=== PATIENT | female | born 1975 | race African-American/Black ===

== ENCOUNTER 2017-01-27 06:16 | Emergency (ER) | payer OTHER ==
--- NOTE | 2017-01-27 07:39 | ER Document Report ---
ED General - General Chief Complaint: Vaginal Discharge Stated Complaint: VAGINAL ITCHING Time Seen by Provider: 01/27/17 07:03 Mode of Arrival: Ambulatory Information source: Patient Notes: Patient presents emergency department with complaints of vaginal discharge with odor vaginal itching and stomach cramps for about 11/2 weeks. Patient reports history of ED. Reports sexually active with 2 partners and sometimes uses protection. Denies other symptoms such as fever vomiting reports occasional diarrhea. History of BTL in 2006. Denies pain with void. TRAVEL OUTSIDE OF THE [place] IN LAST 30 DAYS: No - HPI Onset: Last week Onset/Duration: Persistent Quality of pain: Cramping Severity: Moderate Pain Level: 3 Associated symptoms: None Exacerbated by: Denies Relieved by: Denies Similar symptoms previously: Yes - hx of bv - Related Data Allergies/Adverse Reactions: No Known Allergies Allergy (Verified 12/10/15 16:29) Past Medical History - General Information source: Patient Last Menstrual Period: 2 weeks ago - Social History Smoking Status: Unknown if Ever Smoked Cigarette use (# per day): No Frequency of alcohol use: None Drug Abuse: None Family History: Reviewed & Not Pertinent Patient has suicidal ideation: No Patient has homicidal ideation: No - Past Medical History Cardiac Medical History: Reports: Hx Hypertension Renal/ Medical History: Denies: Hx Peritoneal Dialysis Past Surgical History: Reports: Hx Tubal Ligation - Immunizations Hx Diphtheria, Pertussis, Tetanus Vaccination: Yes Review of Systems - Review of Systems Notes: Review HPI for review of systems., All other systems negative Physical Exam - Vital signs Vitals: Temp Pulse Resp BP Pulse Ox 97.5 F 59 L 14 134/87 H 99 01/27/17 06:31 01/27/17 06:31 01/27/17 06:31 01/27/17 06:31 01/27/17 06:31 - Notes Notes: PHYSICAL EXAMINATION: GENERAL: Well-appearing and in no acute distress HEAD: Atraumatic, normocephalic. EYES: Pupils equal round extraocular movements intact, sclera anicteric, conjunctiva are normal. ENT: nares patent, . Moist mucous membranes. NECK: Normal range of motion, supple without lymphadenopathy LUNGS: CTAB and equal. No wheezes rales or rhonchi. HEART: Regular rate and rhythm without murmurs ABDOMEN: Soft, no tenderness with palpation. No guarding, no rebound BACK: Denies pain EXTREMITIES: Normal range of motion, no pitting edema. No cyanosis. NEUROLOGICAL: Cranial nerves grossly intact. Normal sensory/motor exams. PSYCH: Normal mood, normal affect. SKIN: Warm, Dry, normal turgor, no rashes or lesions noted - Genitourinary External exam: Normal Speculum exam: Vaginal discharge - + ODOR Vaginal bleeding: None Bimanuel exam: Normal. No: Adnexal tenderness Course - Re-evaluation Re-evalutation: 01/27/17 09:40 Positive for BV and trichomonas. Patient requested treatment prophylactically for chlamydia and gonorrhea. She does not wish to wait for results. She will also be treated for Trichomonas and BV. She was instructed on the importance of follow-up and notifying her partner of the trich 01/27/17 12:12 chlamydia and gonorrhea negative, pt was instructed "no news is good news" before she left so the patient will not be contacted. - Vital Signs Vital signs: Temp Pulse Resp BP Pulse Ox 97.8 F 61 16 111/66 100 01/27/17 09:58 01/27/17 09:58 01/27/17 09:58 01/27/17 09:58 01/27/17 09:58 Procedures - Pelvic Exam Pelvic exam Time completed: 09:01 Cultures obtained: Yes Wet prep obtained: Yes Herpes culture obtained: No POC sent to lab: No Foreign body removed: No Bimanual exam performed: Yes Witnessed by: jeri bowmanstock turner - Discharge Clinical Impression: Vaginal discharge, trichomonas, Bacterial vaginitis, Elevated blood pressure reading Condition: Stable Disposition: HOME, SELF-CARE Instructions: Gonorrhea ([facility]), Chlamydia ([facility]), Trichomonas Infection ([facility]), Vaginosis, Bacterial ([facility]), Metronidazole ([facility]), Azithromycin ([facility]), Rocephin ( [facility]), [facility] Additional Instructions: *You have been evaluated for vaginal discharge, trichomonas, she will vaginosis , possible STD exposure, ELEVATED blood pressure reading *You have been treated prophylactically for gonorrhea and Chlamydia with rocephin and zithromax *Take medication as prescribed for trichomonas and BV *Follow up with your SUSTAINABILITY COMMUNICATOR or the health department for recheck in one week *Avoid sexual intercourse until follow up *Return to ED for worsening condition, changes, needs Monitor your blood pressure. Your blood pressure was elevated today. This may be because you were anxious, in pain or because you need medication. It is important to follow up with your primary care provider for full evaluation. Prescriptions: Metronidazole [Flagyl 500 mg Tablet] 500 mg PO BID #14 tablet Forms: Elevated Blood Pressure, Return to Work Referrals: SALVADOR KEEN MD [Primary Care Provider] - Follow up in 1 week
[2017-01-27 08:38] LABS: AMORPHOUS SEDIMENT,URINE TRACE /HPF; APPEARANCE,URINE CLOUDY; BILIRUBIN,URINE NEGATIVE (NEGATIVE); CALCIUM OXALATE CRYSTALS,URINE FEW /HPF; GLUCOSE, URINE NEGATIVE (NEGATIVE); KETONES,URINE NEGATIVE (NEGATIVE); LEUKOCYTE ESTERASE,URINE NEGATIVE (NEGATIVE); NITRITE,URINE NEGATIVE (NEGATIVE); PROTEIN,URINE NEGATIVE (NEGATIVE); URINE SPECIFIC GRAVITY 1.011; UROBILINOGEN,URINE NEGATIVE mg/dL (<2.0)
[2017-01-27] MEDS ORDERED: LIDOCAINE 1% INJ-PF (10 MG/ML) 30 ML SDV INJ ONE (09:35)
[2017-01-27] MEDS ORDERED: CEFTRIAXONE INJ 250 MG VIAL IM ONE (09:35)
[2017-01-27] MEDS ORDERED: AZITHROMYCIN 1 GM SUSP PACKET PO ONE (09:35)
[2017-01-27 10:00] VITALS: BP 111/66
[2017-01-27 10:41] LABS: CHLAM PCR NOT DETECTED (NOT DETECT)
== END 2017-01-27 10:13 | disposition home or self-care (01) ==
LOC: ER 06:16
DX: A59.00 Urogenital trichomoniasis, unspecified (principal); N76.0 Acute vaginitis; R03.0 Elevated blood-pressure reading, without diagnosis of hypertension; N89.8 Other specified noninflammatory disorders of vagina; R10.9 Unspecified abdominal pain
CPT/HCPCS: 99283; 96372; 87210; 81025; 81001; 87491; 87591; J3490; Q0144; J0696

== ENCOUNTER 2017-02-01 21:03 | Emergency (ER) | payer OTHER ==
[2017-02-01 23:25] LABS: ABSOLUTE EOSINOPHILS # (AUTO) 0.1 10^3/uL (0.0-0.6); ABSOLUTE LYMPHOCYTES (AUTO) 2.6 10^3/uL (0.5-4.7); ABSOLUTE MONOCYTES (AUTO) 0.6 10^3/uL (0.1-1.4); ABSOLUTE NEUT (AUTO) 2.1 10^3/uL (1.7-8.2); BASOPHILS % (AUTO) 0.3 % (0-2); EOSINOPHILS % (AUTO) 1.7 % (0-6); HEMATOCRIT 34.2 % (36.0-47.0); HGB HCT DIFFERENCE -1.2; LYMPHOCYTES % (AUTO) 47.8 % (13-45); MEAN CORPUSCULAR HGB CONC 32.1 g/dL (32.0-36.0); MEAN CORPUSCULAR VOLUME 84 fl (80-97); MONOCYTES % (AUTO) 11.3 % (3-13); RED BLOOD COUNT 4.08 10^6/uL (3.72-5.28); RED CELL DISTRIBUTION WIDTH 14.8 % (11.5-14.0); SEGMENTED NEUTROPHILS % (AUTO) 38.9 % (42-78); WHITE BLOOD COUNT 5.5 10^3/uL (4.0-10.5)
[2017-02-01 23:41] LABS: ANION GAP 9 (5-19); BLOOD UREA NITROGEN 13 mg/dL (7-20); CALCIUM 9.1 mg/dL (8.4-10.2); CARBON DIOXIDE 27 mmol/L (22-30); CHLORIDE 105 mmol/L (98-107); CREATININE RESULT 0.88 mg/dL (0.52-1.25); GLUCOSE 100 mg/dL (75-110); POTASSIUM 3.8 mmol/L (3.6-5.0); SODIUM 141.2 mmol/L (137-145)
--- NOTE | 2017-02-02 01:13 | ER Document Report ---
ED GI/ - General Chief Complaint: Abdominal Cramping Stated Complaint: ABDOMINAL PAIN Time Seen by Provider: 02/01/17 21:49 Notes: Patient is a 41-year-old female presents with department complaining of abdominal cramping and diarrhea starting on Sunday. Was evaluated on Sunday for vaginal discharge, treated for Trichomonas, BV, chlamydia and gonorrhea. Patient states since Sunday she has been having 4-5 loose bowel movements a day with associated nausea, cramping abdominal pain. She denies any fevers, chills. Denies any vomiting or bright red blood per rectum TRAVEL OUTSIDE OF THE [place] IN LAST 30 DAYS: No - Related Data Allergies/Adverse Reactions: No Known Allergies Allergy (Verified 12/10/15 16:29) Past Medical History - Social History Smoking Status: Never Smoker Chew tobacco use (# tins/day): No Frequency of alcohol use: Social Drug Abuse: None Family History: Reviewed & Not Pertinent Patient has suicidal ideation: No Patient has homicidal ideation: No - Past Medical History Cardiac Medical History: Reports: Hx Hypertension Renal/ Medical History: Denies: Hx Peritoneal Dialysis Past Surgical History: Reports: Hx Tubal Ligation - Immunizations Hx Diphtheria, Pertussis, Tetanus Vaccination: Yes Review of Systems - Review of Systems Constitutional: No symptoms reported Cardiovascular: No symptoms reported Respiratory: No symptoms reported Gastrointestinal: See HPI -: Yes All other systems reviewed and negative Physical Exam - Vital signs Vitals: Temp Pulse Resp BP Pulse Ox 97.8 F 73 16 129/94 H 97 02/01/17 21:26 02/01/17 21:26 02/01/17 21:26 02/01/17 21:26 02/01/17 21:26 - Notes Notes: PHYSICAL EXAM GENERAL: Alert, interacts well. LUNGS: Clear to auscultation bilaterally, no wheezes, rales, or rhonchi. No respiratory distress. HEART: Regular rate and rhythm. No murmurs, gallops, or rubs. ABDOMEN: Soft, nondistended, nontender. No guarding, rebound, or rigidity.. Bowel sounds present in all 4 quadrants. EXTREMITIES: Moves all 4 extremities spontaneously. No edema, radial and dorsalis pedis pulses 2/4 bilaterally. No cyanosis. NEUROLOGICAL: Alert and oriented x4. Normal speech. PSYCH: Normal affect, normal mood. SKIN: Warm, dry, normal turgor. No rashes or lesions noted. Course - Re-evaluation Re-evalutation: 02/02/17 07:43 CBC without any evidence of leukocytosis or anemia. CMP normal. C. difficile toxin negative. Patient given instructions for [id number] supplements and diet for her diarrhea and instruction to follow-up with primary care - Vital Signs Vital signs: Temp Pulse Resp BP Pulse Ox 97.8 F 65 18 119/72 99 02/01/17 21:26 02/02/17 01:19 02/02/17 01:19 02/02/17 01:19 02/02/17 01:19 - Laboratory Result Diagrams: 02/01/17 22:49 02/01/17 22:49 Laboratory results interpreted by me: 02/01/17 22:49 Hgb 11.0 L Hct 34.2 L RDW 14.8 H Seg Neutrophils % 38.9 L Lymphocytes % 47.8 H Discharge - Discharge Clinical Impression: Diarrhea Condition: Good Disposition: HOME, SELF-CARE Instructions: Diarrhea, Nonspecific ([facility]) Additional Instructions: Patients should be encouraged to eat as tolerated. Smaller meals may be less likely to induce vomiting than larger ones. [place], low residue foods may also be better tolerated than others. For healthy adults with acute viral gastroenteritis without signs of dehydration , sport drinks, diluted fruit juices, and other flavored soft drinks augmented with saltine crackers and broths or soups can meet the fluid and salt needs in almost all cases. Broiled starches/cereals (potatoes, noodles, rice, wheat, and oat) with some salt are excellent foods to consider. In addition, crackers, bananas, yogurt, soups, and boiled vegetables can also be consumed. While the BRAT diet (bananas, rice, applesauce, and toast)
[2017-02-02 01:20] VITALS: BP 119/72
== END 2017-02-02 01:19 | disposition home or self-care (01) ==
LOC: ER 21:03
DX: R10.9 Unspecified abdominal pain (principal); R19.7 Diarrhea, unspecified; R11.0 Nausea; I10 Essential (primary) hypertension; Z98.51 Tubal ligation status
CPT/HCPCS: 36415; 80048; 85025; 87493; 99284

== ENCOUNTER 2017-03-02 08:31 | Emergency (ER) | payer OTHER ==
[2017-03-02] MEDS ORDERED: AZITHROMYCIN 250 MG TABLET PO ONE (11:25)
[2017-03-02] MEDS ORDERED: LIDOCAINE 1% INJ-PF (10 MG/ML) 30 ML SDV INJ ONE (11:25)
[2017-03-02] MEDS ORDERED: CEFTRIAXONE INJ 250 MG VIAL IM ONE (11:25)
--- NOTE | 2017-03-02 11:28 | ER Document Report ---
ED GI/ - General Chief Complaint: Abdominal Pain Stated Complaint: ABDOMINAL PAIN Time Seen by Provider: 03/02/17 08:48 Mode of Arrival: Ambulatory Information source: Patient Notes: Patient is a 41-year-old female who presents to the ER today for lower abdominal cramping. Vaginal discharge with itching that began approximately 2 weeks ago. Patient is concerned for STDs such as gonorrhea and chlamydia. She denies any dysuria, fevers, chills that she knows of. She denies vaginal bleeding. TRAVEL OUTSIDE OF THE [place] IN LAST 30 DAYS: No - Related Data Allergies/Adverse Reactions: No Known Allergies Allergy (Verified 03/02/17 08:35) Past Medical History - General Information source: Patient - Social History Smoking Status: Never Smoker Chew tobacco use (# tins/day): No Frequency of alcohol use: None Drug Abuse: None Family History: Reviewed & Not Pertinent Patient has suicidal ideation: No Patient has homicidal ideation: No - Past Medical History Cardiac Medical History: Reports: Hx Hypertension Renal/ Medical History: Denies: Hx Peritoneal Dialysis Past Surgical History: Reports: Hx Tubal Ligation - Immunizations Hx Diphtheria, Pertussis, Tetanus Vaccination: Yes Review of Systems - Review of Systems Constitutional: No symptoms reported EENT: No symptoms reported Cardiovascular: No symptoms reported Respiratory: No symptoms reported Gastrointestinal: No symptoms reported Genitourinary: No symptoms reported Female Genitourinary: See HPI Musculoskeletal: No symptoms reported Skin: No symptoms reported Hematologic/Lymphatic: No symptoms reported Neurological/Psychological: No symptoms reported Physical Exam - Vital signs Vitals: Temp Pulse Resp BP Pulse Ox 97.7 F 64 16 141/91 H 99 03/02/17 08:36 03/02/17 08:36 03/02/17 08:36 03/02/17 08:36 03/02/17 08:36 - Notes Notes: PHYSICAL EXAMINATION: GENERAL: Well-appearing and in no acute distress. HEAD: Atraumatic, normocephalic. EYES: Pupils equal round and reactive to light, extraocular movements intact, sclera anicteric, conjunctiva are normal. ENT: ear canals without erythema or foreign body, TMs pearly ricks with good bony landmarks, nares patent, oropharynx clear without exudates. Moist mucous membranes. NECK: Normal range of motion, supple without lymphadenopathy LUNGS: CTAB and equal. No wheezes rales or rhonchi. HEART: Regular rate and rhythm without murmurs ABDOMEN: Soft, no tenderness. No guarding, no rebound BACK: no vertebral tenderness, normal ROM GI/: no CVA tenderness Pelvic: White, curdy discharge in vaginal canal, no cervical motion tenderness, no adnexal tenderness EXTREMITIES: Normal range of motion, no pitting edema. No cyanosis. NEUROLOGICAL: Cranial nerves grossly intact. Normal sensory/motor exams. PSYCH: Normal mood, normal affect. SKIN: Warm, Dry, normal turgor, no rashes or lesions noted Course - Re-evaluation Re-evalutation: 03/02/17 11:27 Wet mount is normal, patient will be prophylactically treated for gonorrhea and chlamydia with Rocephin and azithromycin although she does not want to wait on the results. - Vital Signs Vital signs: Temp Pulse Resp BP Pulse Ox 97.7 F 64 16 141/91 H 99 03/02/17 08:36 03/02/17 08:36 03/02/17 08:36 03/02/17 08:36 03/02/17 08:36 Discharge - Discharge Clinical Impression: Vaginal discharge Condition: Stable Disposition: HOME, SELF-CARE Additional Instructions: Return immediately for any new or worsening symptoms. Follow up with primary care provider, call tomorrow to make followup appointment.
[2017-03-02 11:55] VITALS: BP 139/92
[2017-03-02 11:57] LABS: APPEARANCE,URINE CLEAR; BILIRUBIN,URINE NEGATIVE (NEGATIVE); GLUCOSE, URINE NEGATIVE (NEGATIVE); KETONES,URINE NEGATIVE (NEGATIVE); LEUKOCYTE ESTERASE,URINE NEGATIVE (NEGATIVE); NITRITE,URINE NEGATIVE (NEGATIVE); PROTEIN,URINE NEGATIVE (NEGATIVE); URINE SPECIFIC GRAVITY 1.012; UROBILINOGEN,URINE NEGATIVE mg/dL (<2.0)
[2017-03-02 12:43] LABS: CHLAM PCR NOT DETECTED (NOT DETECT)
== END 2017-03-02 11:58 | disposition home or self-care (01) ==
LOC: ER 08:31
DX: R10.30 Lower abdominal pain, unspecified (principal); N89.8 Other specified noninflammatory disorders of vagina; I10 Essential (primary) hypertension; Z98.51 Tubal ligation status
CPT/HCPCS: 99284; 96372; 87210; 81025; 81001; 87491; 87591; J3490; J0696

== ENCOUNTER 2017-05-30 17:22 | Emergency (ER) | payer OTHER ==
[2017-05-30 18:06] LABS: AMORPHOUS SEDIMENT,URINE TRACE /HPF; APPEARANCE,URINE TURBID; BILIRUBIN,URINE NEGATIVE (NEGATIVE); CALCIUM OXALATE CRYSTALS,URINE TOO NUMEROUS TO CNT /HPF; GLUCOSE, URINE NEGATIVE (NEGATIVE); KETONES,URINE NEGATIVE (NEGATIVE); LEUKOCYTE ESTERASE,URINE NEGATIVE (NEGATIVE); NITRITE,URINE NEGATIVE (NEGATIVE); PROTEIN,URINE NEGATIVE (NEGATIVE); URINE SPECIFIC GRAVITY 1.032
--- NOTE | 2017-05-30 18:20 | ER Document Report ---
ED Medical Screen (RME) - General Chief Complaint: Abdominal Pain Stated Complaint: STOMACH PAIN Time Seen by Provider: 05/30/17 17:38 Mode of Arrival: Ambulatory Information source: Patient TRAVEL OUTSIDE OF THE [place] IN LAST 30 DAYS: No - HPI Patient complains to provider of: Right lower quadrant pain 1 Notes: 05/30/17 18:20 Patient is a 41-year-old female presenting to the emergency room today complaining of pain to the right lower abdomen 1 week, she denies any nausea, vomiting or diarrhea, no fever or chills, no urinary symptoms, she does have milky white vaginal discharge - Related Data Allergies/Adverse Reactions: No Known Allergies Allergy (Verified 05/30/17 17:33) Past Medical History - Social History Chew tobacco use (# tins/day): No Frequency of alcohol use: None Drug Abuse: None - Past Medical History Cardiac Medical History: Reports: Hx Hypertension Renal/ Medical History: Denies: Hx Peritoneal Dialysis Past Surgical History: Reports: Hx Tubal Ligation - Immunizations Hx Diphtheria, Pertussis, Tetanus Vaccination: Yes Physical Exam - Vital signs Vitals: Temp Pulse Resp BP Pulse Ox 97.5 F 82 18 144/89 H 98 05/30/17 17:32 05/30/17 17:32 05/30/17 17:32 05/30/17 17:32 05/30/17 17:32 Course - Vital Signs Vital signs: Temp Pulse Resp BP Pulse Ox 97.5 F 82 18 144/89 H 98 05/30/17 17:32 05/30/17 17:32 05/30/17 17:32 05/30/17 17:32 05/30/17 17:32 - Laboratory Laboratory results interpreted by me: 05/30/17 17:33 Urine Urobilinogen 2.0 H
[2017-05-30 18:57] LABS: ABSOLUTE EOSINOPHILS # (AUTO) 0.1 10^3/uL (0.0-0.6); ABSOLUTE LYMPHOCYTES (AUTO) 2.7 10^3/uL (0.5-4.7); ABSOLUTE MONOCYTES (AUTO) 0.5 10^3/uL (0.1-1.4); ABSOLUTE NEUT (AUTO) 1.7 10^3/uL (1.7-8.2); BASOPHILS % (AUTO) 0.5 % (0-2); HEMATOCRIT 35.2 % (36.0-47.0); HEMOGLOBIN 11.5 g/dL (12.0-15.5); HGB HCT DIFFERENCE -0.7; LYMPHOCYTES % (AUTO) 53.4 % (13-45); MEAN CORPUSCULAR HEMOGLOBIN 26.7 pg (27.0-33.4); MEAN CORPUSCULAR HGB CONC 32.7 g/dL (32.0-36.0); MEAN CORPUSCULAR VOLUME 82 fl (80-97); MONOCYTES % (AUTO) 9.8 % (3-13); RED CELL DISTRIBUTION WIDTH 14.1 % (11.5-14.0); SEGMENTED NEUTROPHILS % (AUTO) 34.3 % (42-78)
[2017-05-30 19:18] LABS: ALANINE AMINOTRANSFERASE 33 U/L (9-52); ALBUMIN 4.1 g/dL (3.5-5.0); ALKALINE PHOSPHATASE 71 U/L (38-126); ANION GAP 11 (5-19); ASPARTATE AMINO TRANSFERASE 22 U/L (14-36); BILIRUBIN,DIRECT 0.3 mg/dL (0.0-0.4); BILIRUBIN,TOTAL 0.4 mg/dL (0.2-1.3); BLOOD UREA NITROGEN 12 mg/dL (7-20); CALCIUM 9.8 mg/dL (8.4-10.2); CARBON DIOXIDE 25 mmol/L (22-30); CHLORIDE 106 mmol/L (98-107); CREATININE RESULT 0.76 mg/dL (0.52-1.25); GLUCOSE 105 mg/dL (75-110); LIPASE 102.4 U/L (23-300); POTASSIUM 3.7 mmol/L (3.6-5.0); SODIUM 142.1 mmol/L (137-145); TOTAL PROTEIN 7.4 g/dL (6.3-8.2)
--- NOTE | 2017-05-30 20:16 | ER Document Report ---
ED GI/ - General Chief Complaint: Abdominal Pain Stated Complaint: STOMACH PAIN Time Seen by Provider: 05/30/17 17:38 Mode of Arrival: Ambulatory Notes: Patient is a 41-year-old female that comes emergency department for chief complaint of a crampy right sided lower abdominal/pelvic pain for 1 week. She does report a whitish vaginal discharge. She denies dysuria, flank pain, vomiting, fever. She reports a normal bowel movement yesterday. Past medical history of tubal ligation, she denies any other medical history including surgeries or daily medications. TRAVEL OUTSIDE OF THE [place] IN LAST 30 DAYS: No - Related Data Allergies/Adverse Reactions: No Known Allergies Allergy (Verified 05/30/17 17:33) Past Medical History - General Information source: Patient - Social History Smoking Status: Never Smoker Chew tobacco use (# tins/day): No Frequency of alcohol use: None Drug Abuse: None Lives with: Family Family History: Reviewed & Not Pertinent - Past Medical History Cardiac Medical History: Reports: Hx Hypertension Renal/ Medical History: Denies: Hx Peritoneal Dialysis Past Surgical History: Reports: Hx Tubal Ligation - Immunizations Hx Diphtheria, Pertussis, Tetanus Vaccination: Yes Physical Exam - Vital signs Vitals: Temp Pulse Resp BP Pulse Ox 97.5 F 82 18 144/89 H 98 05/30/17 17:32 05/30/17 17:32 05/30/17 17:32 05/30/17 17:32 05/30/17 17:32 Course - Re-evaluation Re-evalutation: Patient well-appearing, smiling, soft abdomen, no CVA tenderness, no fever. CBC shows mild normocytic anemia, no leukocytosis or concerning shift. Chemistry unremarkable, hcg negative. Urinalysis somewhat strange with some white blood cells and some bacteria but no nitrites, no leukocyte esterase. He does have calcium oxalate crystals but patient's symptoms, examination, presentation does not suggest kidney stones. There is also some dehydration and contamination. However there are also white blood cell clumps. Wet mount unremarkable, gonorrhea and chlamydia are negative. Patient treated with antibiotics for urinary tract infection because of reported symptoms although her abdominal exam is very unremarkable. No exam evidence of acute abdomen, acute appendicitis, PID. Discussed follow-up and return precautions with patient, patient states understanding and agreement. - Vital Signs Vital signs: Temp Pulse Resp BP Pulse Ox 97.7 F 76 16 138/86 H 99 05/30/17 21:44 05/30/17 21:44 05/30/17 21:44 05/30/17 21:44 05/30/17 21:44 - Laboratory Result Diagrams: 05/30/17 18:42 05/30/17 18:42 Laboratory results interpreted by me: 05/30/17 05/30/17 17:33 18:42 Hgb 11.5 L Hct 35.2 L MCH 26.7 L RDW 14.1 H Seg Neutrophils % 34.3 L Lymphocytes % 53.4 H Urine Urobilinogen 2.0 H Discharge - Discharge Clinical Impression: Lower abdominal pain Condition: Stable Disposition: HOME, SELF-CARE Additional Instructions: Your symptoms, exam, and workup suggest a urinary tract source of your symptoms. Take the Keflex antibiotic as prescribed. Drink plenty of fluids, you are dehydrated, dehydration will increase abdominal cramping symptoms. Follow-up with primary care. Return to the emergency department if you worsen including fever, vomiting, severe pain, or any other concerning symptoms. Prescriptions: Cephalexin Monohydrate [Keflex 500 mg Capsule] 500 mg PO BID #10 capsule Forms: Return to Work
[2017-05-30] MEDS ORDERED: CEPHALEXIN 500 MG CAPSULE PO ONE (21:31)
[2017-05-30 21:44] VITALS: BP 138/86
[2017-05-30 22:32] LABS: CHLAM PCR NOT DETECTED (NOT DETECT)
== END 2017-05-30 21:44 | disposition home or self-care (01) ==
LOC: ER 17:22
DX: R10.31 Right lower quadrant pain (principal); N89.8 Other specified noninflammatory disorders of vagina; Z98.51 Tubal ligation status; D64.9 Anemia, unspecified; E86.0 Dehydration; I10 Essential (primary) hypertension
CPT/HCPCS: 36415; 80053; 81001; 83690; 84703; 85025; 87210; 87491; 87591; 99284

== ENCOUNTER 2017-08-28 22:39 | Emergency (ER) | payer OTHER ==
[2017-08-29] MEDS ORDERED: LIDOCAINE 5% (700 MG) TRANSDERMAL ADH..PATCH TP ONE (01:01)
--- NOTE | 2017-08-29 01:02 | ER Document Report ---
ED General - General Chief Complaint: Flu Symptoms Stated Complaint: COUGH,SNEEZING Time Seen by Provider: 08/29/17 00:13 Notes: Patient is a 41-year-old female without past medical history who presents with approximately 1 week of cough, sneezing, nasal congestion, and chest discomfort with coughing and sneezing. She describes the chest discomfort as a sharp, stabbing pain to the right side of her chest that is present whenever she coughs or sneezes and then resolves after approximately 10 minutes. Nothing seems to improve or worsen her symptoms. Also sick contacts. She states she has had similar symptoms in the past with upper respiratory infections. She has not seen her primary doctor regarding today's concerns. She denies any syncope, shortness of breath, fever, or altered mental status. TRAVEL OUTSIDE OF THE [place] IN LAST 30 DAYS: No - Related Data Allergies/Adverse Reactions: No Known Allergies Allergy (Verified 05/30/17 17:33) Past Medical History - General Information source: Patient - Social History Smoking Status: Never Smoker Chew tobacco use (# tins/day): No Frequency of alcohol use: None Drug Abuse: None Family History: Reviewed & Not Pertinent Patient has suicidal ideation: No Patient has homicidal ideation: No - Past Medical History Cardiac Medical History: Reports: Hx Hypertension Renal/ Medical History: Denies: Hx Peritoneal Dialysis Past Surgical History: Reports: Hx Tubal Ligation - Immunizations Hx Diphtheria, Pertussis, Tetanus Vaccination: Yes Review of Systems - Review of Systems Notes: Constitutional: Negative for fever. HENT: Negative for sore throat. Positive for sinus congestion Eyes: Negative for visual changes. Cardiovascular: Negative for chest pain. Respiratory: Negative for shortness of breath. Gastrointestinal: Negative for abdominal pain, vomiting or diarrhea. Genitourinary: Negative for dysuria. Musculoskeletal: Positive for chest wall discomfort. Skin: Negative for rash. Neurological: Negative for headaches, weakness or numbness. 10 point ROS negative except as marked above and in HPI. Physical Exam - Vital signs Vitals: Temp Pulse Resp BP Pulse Ox 97.9 F 76 20 135/97 H 100 08/28/17 22:39 08/28/17 22:39 08/28/17 22:39 08/28/17 22:39 08/28/17 22:39 Interpretation: Normal Notes: PHYSICAL EXAMINATION: GENERAL: Well-appearing, well-nourished and in no acute distress. HEAD: Atraumatic, normocephalic. EYES: Pupils equal round and reactive to light, extraocular movements intact, sclera anicteric, conjunctiva are normal. ENT: nares patent, oropharynx clear without exudates. Moist mucous membranes. NECK: Normal range of motion, supple without lymphadenopathy LUNGS: Breath sounds clear to auscultation bilaterally and equal. No wheezes rales or rhonchi. HEART: Regular rate and rhythm without murmurs ABDOMEN: Soft, nontender, normoactive bowel sounds. No guarding, no rebound. No masses appreciated. EXTREMITIES: Normal range of motion, no pitting or edema. No cyanosis. NEUROLOGICAL: No focal neurological deficits. Moves all extremities spontaneously and on command. PSYCH: Normal mood, normal affect. SKIN: Warm, Dry, normal turgor, no rashes or lesions noted. Course - Re-evaluation Re-evalutation: 08/29/17 01:00 Presentation is most consistent with a viral upper respiratory infection. Patient is overall well appearance, vitals within normal limits, well-hydrated. Patient denies any headache, neck pain, and has no evidence of meningismus on examination. Patient complains of mild chest discomfort with coughing and sneezing which is reproducible on palpation. Chest x-ray and EKG are unremarkable. Lungs are clear bilaterally. No evidence of respiratory distress. Based on clinical exam and history, I do not suspect an acute pneumonia, meningitis, strep pharyngitis, or an acute encephalitis. I do not see an indication for laboratory testing given patient's well appearance and clinical history. At this time will discharge with return precautions and follow-up recommendations. Verbal discharge instructions given a the bedside and opportunity for questions given. Medication warnings reviewed. Patient is in agreement with this plan and has verbalized understanding of return precautions and the need for primary care follow-up in the next 24-72 hours. - Vital Signs Vital signs: Temp Pulse Resp BP Pulse Ox 97.7 F 61 18 130/83 H 98 08/29/17 02:11 08/29/17 02:11 08/29/17 02:11 08/29/17 02:11 08/29/17 02:11 - Diagnostic Test Radiology reviewed: Image reviewed, Reports reviewed Radiology results interpreted by me: 08/29/17 03:24 Chest x-ray: No acute infiltrate or pneumothorax - EKG Interpretation by Me Additional EKG results interpreted by me: 08/29/17 01:01 Normal sinus rhythm. Rate 60. No ST elevations or depressions. QTC is 429. Discharge - Discharge Clinical Impression: Viral upper respiratory infection, Costochondritis, acute Condition: Good Disposition: HOME, SELF-CARE Additional Instructions: Your symptoms are most likely due to a viral infection it should resolve over the next 7-14 days. You should take [id number] guanfacine per bottle instructions to help thin the mucus. For nasal congestion: I would recommend that you get [id number] oxymetazoline also known is afrin. Use only per bottle instructions and be sure to never use this for more than 3 days if you can develop severe rebound congestion. You may also use tylenol or ibuprofen as needed for aches and thorat discomfort. Please be sure to drink plenty of fluids and get rest. Return to the emergency department he began having difficulty breathing, chest pain, persistent vomiting, or any other symptoms that are concerning to you.
--- NOTE | 2017-08-29 01:58 | RADIOLOGY REPORT (SQ) ---
EXAM DESCRIPTION: CHEST SINGLE VIEW CLINICAL HISTORY: 41 years, Female, cough, chest discomfort COMPARISON: None. FINDINGS: Moderate lung volume, clear parenchyma, normal cardiac silhouette, and intact bony thorax. IMPRESSION: No acute cardiopulmonary findings. 2011 [employer] - [employer]- All Rights Reserved
[2017-08-29 02:11] VITALS: BP 130/83
--- NOTE | 2017-08-29 10:34 | EKG REPORT ---
SEVERITY:- NORMAL ECG - SINUS RHYTHM : Confirmed by: Silvana Lance 29-Aug-2017 10:33:17
== END 2017-08-29 02:11 | disposition home or self-care (01) ==
LOC: ER 22:39
DX: J06.9 Acute upper respiratory infection, unspecified (principal); M94.0 Chondrocostal junction syndrome [Tietze]; I10 Essential (primary) hypertension; Z98.51 Tubal ligation status
CPT/HCPCS: 71045; 93005; 93010; 99283

== ENCOUNTER 2018-01-18 21:09 | Emergency (ER) | payer SELFPAY ==
[2018-01-18] MEDS ORDERED: LORATADINE 10 MG TABLET PO ONE (23:48)
--- NOTE | 2018-01-18 23:53 | ER Document Report ---
ED Skin Rash/Insect Bite/Abscs - General Chief Complaint: Rash Stated Complaint: RASH Time Seen by Provider: 01/18/18 22:43 Mode of Arrival: Ambulatory Information source: Patient TRAVEL OUTSIDE OF THE [place] IN LAST 30 DAYS: No - HPI Patient complains to provider of: Skin rash/lesion Notes: Patient is here with complaints of itchy rash to the bilateral hands and forearms for the last week. 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 She does wear latex gloves every day at work. The rash is itchy. There is no significant pain. She denies any numbness, tingling , weakness. No fever. No nausea, vomiting, diarrhea. She denies any new soaps , detergents, lotions, medications. No specific new exposures while at work. She denies any difficulty breathing or swallowing. She tried some hydrocortisone cream which she states worked somewhat but it still seems to be very itchy and not going away. She denies any other complaints at this time. - Related Data Allergies/Adverse Reactions: No Known Allergies Allergy (Verified 05/30/17 17:33) Past Medical History - Social History Smoking Status: Never Smoker Frequency of alcohol use: Occasional Drug Abuse: None Family History: Reviewed & Not Pertinent Patient has suicidal ideation: No Patient has homicidal ideation: No - Past Medical History Cardiac Medical History: Reports: Hx Hypertension Renal/ Medical History: Denies: Hx Peritoneal Dialysis Past Surgical History: Reports: Hx Tubal Ligation - Immunizations Hx Diphtheria, Pertussis, Tetanus Vaccination: Yes Review of Systems - Review of Systems -: Yes All other systems reviewed and negative Physical Exam - Vital signs Vitals: Temp Pulse Resp BP Pulse Ox 98.6 F 60 16 128/85 H 100 01/18/18 21:41 01/18/18 21:41 01/18/18 21:41 01/18/18 21:41 01/18/18 21:41 - Notes Notes: GENERAL: alert, cooperative, nontoxic, no distress. HEAD: normocephalic, atraumatic EYES: conjunctiva pink without discharge, no external redness or swelling. EARS: no external swelling, no external redness NOSE: atraumatic, no external swelling MOUTH/THROAT: mucous membranes moist and pink NECK: soft, supple, full range of motion, no meningismus. CHEST: no distress, lungs clear and equal throughout. No wheezing, rales, rhonchi. CARDIAC: regular rate and rhythm, no murmur, normal capillary refill, normal pulses. BACK: full range of motion, no CVA tenderness. EXTREMITIES: full range of motion of all extremities. No redness, no swelling. NEURO: alert and oriented 3, no focal deficits, full range of motion of all extremities. PYSCH: appropriate mood, affect. Patient is cooperative. SKIN: pink, warm, dry, nonspecific papular rash to the dorsum of the bilateral hands and the distal third of the forearms. No redness. No petechiae. No vesicles. Full range of motion. Course - Re-evaluation Re-evalutation: 01/18/18 23:50 Patient is nontoxic appearing with stable vitals. Here with complaints of rash to the hands and distal forearms for the last week or so. 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 She occasionally does dishes as well. Rash certainly has a consistent appearance with contact dermatitis versus irritant dermatitis. At this point I instructed the patient to stop wearing latex gloves. I did give her a small supply of some latex free gloves that she can try at work. I did inform her to have her work order her latex free gloves to try this. She will be given a prescription for Kenalog cream. She is instructed to take Benadryl as needed for the itching. Follow-up if this does not improve in the next week, sooner for worsening symptoms, high fever, pain, numbness, tingling, weakness, any further concerns. The patient is noted to have elevated blood pressure during today's emergency department visit. The patient was informed of this finding. The patient was instructed that this may be related to pre-hypertension and requires further evaluation with a primary care provider. The patient has no hypertensive symptoms at this time. The patient's emergency department workup and current diagnosis were explained to the patient and or family. Follow-up instructions were provided. Medications if prescribed were discussed. Instructions for when to return to the emergency department including specific worrisome symptoms were discussed with the patient and/or family. - Vital Signs Vital signs: Temp Pulse Resp BP Pulse Ox 98.6 F 60 16 128/85 H 100 01/18/18 21:41 01/18/18 21:41 01/18/18 21:41 01/18/18 21:41 01/18/18 21:41 Discharge - Discharge Clinical Impression: Contact dermatitis Qualifiers: Contact dermatitis type: allergic Contact dermatitis trigger: unspecified trigger Qualified Code(s): L23.9 - Allergic contact dermatitis, unspecified cause Condition: Stable Disposition: HOME, SELF-CARE Instructions: Contact Dermatitis ([facility]) Additional Instructions: Take medications as prescribed. Wear latex free gloves while at work. Take [id number] Claritin or Benadryl to help with itching. Follow-up if not better in 1 week, sooner for worsening symptoms, high fever, redness, pain, numbness, tingling, weakness, any further concerns. Your blood pressure was elevated during today's visit. Have this rechecked with your doctor. Prescriptions: Triamcinolone Acetonide 1 applic TP BID #90 g Forms: Elevated Blood Pressure, Smoking Cessation Education Referrals: [facility] [Provider Group] - Follow up as needed
[2018-01-19 00:19] VITALS: BP 141/94
== END 2018-01-19 00:20 | disposition home or self-care (01) ==
LOC: ER 21:09
DX: L23.9 Allergic contact dermatitis, unspecified cause (principal); L29.9 Pruritus, unspecified; I10 Essential (primary) hypertension; Z98.51 Tubal ligation status
CPT/HCPCS: 99282

== ENCOUNTER 2018-04-02 08:23 | Emergency (ER) | payer OTHER ==
--- NOTE | 2018-04-02 08:43 | ER Document Report ---
ED Medical Screen (RME) - General Chief Complaint: High Blood Pressure Stated Complaint: BLOOD PRESSURE ISSUE Time Seen by Provider: 04/02/18 08:38 Mode of Arrival: Wheelchair Information source: Patient Notes: Patient presents emergency department with reports that her blood pressure was high at work. She reports she felt really hot, dizzy and nauseated. Patient reports her blood pressure goes up and down but she is not currently taking any kind of blood pressure medication. Denies cardiac history. Denies chest pain, denies shortness of breath. Reports headaches now and then but denies headache at this point. marked pain 4/5 but reports that was her dizziness, not pain. I have greeted and performed a rapid initial assessment of this patient. A comprehensive ED assessment and evaluation of the patient, analysis of test results and completion of the medical decision making process will be conducted by additional ED providers. TRAVEL OUTSIDE OF THE [place] IN LAST 30 DAYS: No - Related Data Allergies/Adverse Reactions: No Known Allergies Allergy (Verified 05/30/17 17:33) Past Medical History - Past Medical History Cardiac Medical History: Reports: Hx Hypertension Renal/ Medical History: Denies: Hx Peritoneal Dialysis Past Surgical History: Reports: Hx Tubal Ligation - Immunizations Hx Diphtheria, Pertussis, Tetanus Vaccination: Yes Physical Exam - Vital signs Vitals: Temp Pulse Resp BP Pulse Ox 98.0 F 75 20 146/86 H 100 04/02/18 08:24 04/02/18 08:24 04/02/18 08:24 04/02/18 08:24 04/02/18 08:24 Course - Vital Signs Vital signs: Temp Pulse Resp BP Pulse Ox 98.0 F 75 20 146/86 H 100 04/02/18 08:24 04/02/18 08:24 04/02/18 08:24 04/02/18 08:24 04/02/18 08:24
[2018-04-02 09:38] LABS: ABSOLUTE EOSINOPHILS # (AUTO) 0.1 10^3/uL (0.0-0.6); ABSOLUTE LYMPHOCYTES (AUTO) 1.9 10^3/uL (0.5-4.7); ABSOLUTE MONOCYTES (AUTO) 0.3 10^3/uL (0.1-1.4); ABSOLUTE NEUT (AUTO) 1.3 10^3/uL (1.7-8.2); BASOPHILS % (AUTO) 0.8 % (0-2); HEMATOCRIT 37.2 % (36.0-47.0); LYMPHOCYTES % (AUTO) 53.2 % (13-45); MEAN CORPUSCULAR HEMOGLOBIN 26.2 pg (27.0-33.4); MEAN CORPUSCULAR HGB CONC 32.2 g/dL (32.0-36.0); MEAN CORPUSCULAR VOLUME 81 fl (80-97); MONOCYTES % (AUTO) 8.5 % (3-13); PLATELET COUNT 286 10^3/uL (150-450); RED BLOOD COUNT 4.57 10^6/uL (3.72-5.28); RED CELL DISTRIBUTION WIDTH 15.1 % (11.5-14.0); SEGMENTED NEUTROPHILS % (AUTO) 35.5 % (42-78); TOTAL CELLS COUNTED % (AUTO) 100 %; WHITE BLOOD COUNT 3.6 10^3/uL (4.0-10.5)
[2018-04-02 09:56] LABS: ALANINE AMINOTRANSFERASE 22 U/L (9-52); ALBUMIN 4.3 g/dL (3.5-5.0); ALKALINE PHOSPHATASE 82 U/L (38-126); ANION GAP 12 (5-19); ASPARTATE AMINO TRANSFERASE 26 U/L (14-36); BILIRUBIN,DIRECT 0.2 mg/dL (0.0-0.4); BILIRUBIN,TOTAL 0.5 mg/dL (0.2-1.3); BLOOD UREA NITROGEN 14 mg/dL (7-20); CALCIUM 9.6 mg/dL (8.4-10.2); CARBON DIOXIDE 28 mmol/L (22-30); CHLORIDE 103 mmol/L (98-107); GLUCOSE 97 mg/dL (75-110); POTASSIUM 4.1 mmol/L (3.6-5.0); SODIUM 143.3 mmol/L (137-145); TOTAL PROTEIN 8.1 g/dL (6.3-8.2)
--- NOTE | 2018-04-02 10:29 | ER Document Report ---
ED Blood Pressure Problem - General Chief Complaint: High Blood Pressure Stated Complaint: BLOOD PRESSURE ISSUE Time Seen by Provider: 04/02/18 08:38 Mode of Arrival: Ambulatory Information source: Patient Notes: Chief complaint: Elevated blood pressure History of complain:( obtained from----patient) 42 years old female has been running an elevated blood pressure for the last several weeks, at work they checked her blood pressure and it was elevated therefore they sent over to the ER. Prior to that she was complaining of left-sided headache which has subsided by the time she came to the ED. Denies any neck pain neck stiffness. Denies any nausea vomiting. Denies any other constitutional symptoms. Denies any chest pain or palpitation. Onset: As above gradual Duration: Last few weeks Severity: Mild to moderate Quality: None Context: Heat exposure Exacerbating factor and relieving factors: At workplace REVIEW OF SYSTEMS: CONSTITUTIONAL : Denies fever, chills, or sweats. Denies recent illness. EENT: Denies eye, ear, throat, or mouth pain or symptoms. Denies nasal or sinus congestion or discharge. Denies throat, tongue, or mouth swelling or difficulty swallowing. CARDIOVASCULAR: Denies chest pain. Denies palpitations or racing or irregular heart beat. Denies ankle edema. RESPIRATORY: Denies cough, cold, or chest congestion. Denies shortness of breath, difficulty breathing, or wheezing. GASTROINTESTINAL: Denies distention. Denies nausea, vomiting, or diarrhea. Denies blood in vomitus, stools, or per rectum. Denies black, tarry stools. Denies constipation. GENITOURINARY: Denies difficulty urinating, painful urination, burning, frequency, blood in urine, or discharge. FEMALE GENITOURINARY: Denies vaginal bleeding, heavy or abnormal periods, irregular periods. Denies vaginal discharge or odor. MUSCULOSKELETAL: Denies back or neck pain or stiffness. Denies joint pain or swelling. SKIN: Denies rash, lesions or sores. HEMATOLOGIC : Denies easy bruising or bleeding. LYMPHATIC: Denies swollen, enlarged glands. NEUROLOGICAL: Denies confusion or altered mental status. Denies passing out or loss of consciousness. Denies dizziness or lightheadedness. Denies headache. Denies weakness or paralysis or loss of use of either side. Denies problems with gait or speech. Denies sensory loss, numbness, or tingling. Denies seizures. PSYCHIATRIC: Denies anxiety or stress. Denies depression, suicidal ideation, or homicidal ideation. ALL OTHER SYSTEMS REVIEWED AND NEGATIVE. PHYSICAL EXAMINATION: GENERAL: Well-appearing, well-nourished and in no acute distress. HEAD: Atraumatic, normocephalic. EYES: Pupils equal round and reactive to light, extraocular movements intact, conjunctiva are normal. ENT: Nares patent, oropharynx clear without exudates. Moist mucous membranes. NECK: Normal range of motion, supple without lymphadenopathy LUNGS: Breath sounds clear to auscultation bilaterally and equal. No wheezes rales or rhonchi. HEART: Regular rate and rhythm without murmurs ABDOMEN: Soft, nontender, nondistended abdomen. No guarding, no rebound. No masses appreciated. Examination of genitals-deferred Musculoskeletal: Normal range of motion, no pitting or edema. No cyanosis. NEUROLOGICAL: Cranial nerves grossly intact. Normal speech, normal gait. Normal sensory, motor exams PSYCH: Normal mood, normal affect. SKIN: Warm, Dry, normal turgor, no rashes or lesions noted. Dictation was performed using [employer] voice recognition software TRAVEL OUTSIDE OF THE [place] IN LAST 30 DAYS: No - HPI Notes: Dictated - Related Data Allergies/Adverse Reactions: No Known Allergies Allergy (Verified 05/30/17 17:33) Past Medical History - General Information source: Patient - Social History Smoking Status: Never Smoker Frequency of alcohol use: None Drug Abuse: None Lives with: Family Family History: Reviewed & Not Pertinent - Past Medical History Cardiac Medical History: Reports: Hx Hypertension Renal/ Medical History: Denies: Hx Peritoneal Dialysis Past Surgical History: Reports: Hx Tubal Ligation - Immunizations Hx Diphtheria, Pertussis, Tetanus Vaccination: Yes Review of Systems - Review of Systems Notes: Dictated Physical Exam - Vital signs Vitals: Temp Pulse Resp BP Pulse Ox 98.0 F 75 20 146/86 H 100 04/02/18 08:24 04/02/18 08:24 04/02/18 08:24 04/02/18 08:24 04/02/18 08:24 - Notes Notes: Dictated Course - Vital Signs Vital signs: Temp Pulse Resp BP Pulse Ox 98.0 F 75 20 146/86 H 100 04/02/18 08:24 04/02/18 08:24 04/02/18 08:24 04/02/18 08:24 04/02/18 08:24 - Laboratory Result Diagrams: 04/02/18 09:05 04/02/18 09:05 Laboratory results interpreted by me: 04/02/18 09:05 WBC 3.6 L MCH 26.2 L RDW 15.1 H Seg Neutrophils % 35.5 L Lymphocytes % 53.2 H Absolute Neutrophils 1.3 L Discharge - Discharge Clinical Impression: Hypertension Qualifiers: Hypertension type: essential hypertension Qualified Code(s): I10 - Essential ( primary) hypertension Condition: Fair Disposition: HOME, SELF-CARE Instructions: High Blood Pressure, Requiring Treatment ([facility]) Prescriptions: Atenolol [Tenormin] 25 mg PO DAILY #30 tablet Forms: Return to Work
[2018-04-02 10:35] VITALS: BP 116/84
[2018-04-02 11:29] LABS: AMORPHOUS SEDIMENT,URINE TRACE /HPF; APPEARANCE,URINE SLIGHTLY-CLOUDY; BILIRUBIN,URINE NEGATIVE (NEGATIVE); COLOR,URINE YELLOW; GLUCOSE, URINE NEGATIVE (NEGATIVE); KETONES,URINE NEGATIVE (NEGATIVE); LEUKOCYTE ESTERASE,URINE NEGATIVE (NEGATIVE); NITRITE,URINE NEGATIVE (NEGATIVE); PROTEIN,URINE NEGATIVE (NEGATIVE); URINE SPECIFIC GRAVITY 1.019; UROBILINOGEN,URINE NEGATIVE mg/dL (<2.0)
--- NOTE | 2018-04-02 13:45 | EKG REPORT ---
SEVERITY:- NORMAL ECG - SINUS RHYTHM : Confirmed by: Cassandra Vasquez MD 02-Apr-2018 13:44:11
== END 2018-04-02 10:35 | disposition home or self-care (01) ==
LOC: ER 08:23
DX: I10 Essential (primary) hypertension (principal); R51 Headache
CPT/HCPCS: 36415; 80053; 81001; 85025; 93005; 93010; 99283

== ENCOUNTER 2018-04-15 08:49 | Emergency (ER) | payer OTHER ==
--- NOTE | 2018-04-15 09:57 | ER Document Report ---
ED Medical Screen (RME) - General Chief Complaint: Blood Pressure Problem Stated Complaint: BLOOD PRESSURE ISSUE Time Seen by Provider: 04/15/18 09:53 Mode of Arrival: Ambulatory Information source: Patient Notes: This is a 42-year-old female with recently treated hypertension (started on atenolol 1-2 weeks ago). She is presenting with some headaches, dizziness, nausea and jitteriness and just not feeling well. She denies any chest pain or shortness of breath or exertional fatigue. Patient states her blood pressure was up and she was evaluated 2 weeks ago in the ER had that time she had blurry vision and headaches and those of the symptoms she always gets when her pressure is high. She denies any abdominal pain, shortness of breath, fever, chills or recent illnesses. She denies any photophobia or neck stiffness. TRAVEL OUTSIDE OF THE [place] IN LAST 30 DAYS: No - HPI Onset: Last week Onset/Duration: Gradual Quality of pain: No pain Severity: None Pain Level: Denies Associated Symptoms: denies: Chest pain, Earache, Fever, Shortness of breath Exacerbated by: Denies Relieved by: Denies Similar symptoms previously: No Recently seen / treated by doctor: No - Related Data Smoking: Non-smoker Frequency of alcohol use: None Drug Abuse: None Allergies/Adverse Reactions: No Known Allergies Allergy (Verified 04/15/18 09:48) Past Medical History - General Information source: Patient - Social History Cigarette use (# per day): No Chew tobacco use (# tins/day): No Frequency of alcohol use: None Drug Abuse: None Lives with: Family Family history: None - Past Medical History Cardiac Medical History: Reports: Hx Hypertension Renal/ Medical History: Denies: Hx Peritoneal Dialysis Past Surgical History: Reports: Hx Tubal Ligation - Immunizations Hx Diphtheria, Pertussis, Tetanus Vaccination: Yes Review of Systems - Review of Systems Constitutional: denies: Chills, Fever EENT: denies: Blurred vision, Throat pain Cardiovascular: denies: Chest pain, Palpitations, Heart racing Respiratory: denies: Cough, Hemoptysis, Short of breath Gastrointestinal: denies: Abdominal pain, Nausea, Vomiting Genitourinary: No symptoms reported Female Genitourinary: No symptoms reported Musculoskeletal: No symptoms reported Skin: No symptoms reported Hematologic/Lymphatic: No symptoms reported Neurological/Psychological: Other - Dizziness Physical Exam - Vital signs Vitals: Temp Pulse Resp BP Pulse Ox 97.3 F 62 16 137/89 H 97 04/15/18 08:54 04/15/18 08:54 04/15/18 08:54 04/15/18 08:54 04/15/18 08:54 Notes: Physical exam: GENERAL: 22-year-old female, alert and oriented 3, no acute distress. HEAD: Atraumatic, normocephalic. EYES: Pupils equal round and reactive to light, extraocular movements intact, sclera anicteric, conjunctiva are normal. ENT: TMs normal, nares patent, oropharynx clear without exudates. Moist mucous membranes. NECK: Normal range of motion, supple without obvious mass or JVD. LUNGS: Breath sounds clear to auscultation bilaterally and equal. No wheezes rales or rhonchi. HEART: Regular rate and rhythm without murmurs, rubs or gallops. ABDOMEN: Soft, normoactive bowel sounds. No tenderness to palpation. No guarding, no rebound. No masses appreciated. EXTREMITIES: Normal range of motion, no pitting or edema. No clubbing or cyanosis. NEUROLOGICAL: Cranial nerves II through XII grossly intact. Motor 5/5, sensory grossly intact, cerebellar (finger to nose) excellent, Romberg negative, normal speech, reflexes are symmetrical, her gait is normal. PSYCH: Normal mood, normal affect. SKIN: Warm, Dry, normal turgor, no rashes or lesions noted. Course - Vital Signs Vital signs: Temp Pulse Resp BP Pulse Ox 97.9 F 66 16 131/84 H 100 04/15/18 12:51 04/15/18 12:51 04/15/18 12:51 04/15/18 12:51 04/15/18 12:51 - Laboratory Result Diagrams: 04/15/18 09:00 04/15/18 09:00 Laboratory results interpreted by me: 04/15/18 04/15/18 09:00 09:00 Hgb 11.9 L MCH 26.3 L RDW 15.0 H Sodium 146.7 H Doctor's Discharge - Discharge Clinical Impression: Dizziness Condition: Stable Disposition: HOME, SELF-CARE Instructions: Dizziness ([facility]) Additional Instructions: As we discussed, your kidney tests, electrolytes and sugar looked good today. Your anemia studies were normal. I would like you to give the blood pressure medicine 1 more week. Follow-up with Dr. Jim in a week as planned. He will be able to see all the tests done today. Rest, drink plenty of fluids. In the meantime, return to the emergency room for any chest pain, worsening dizziness or any concerns or getting worse. Forms: Return to Work
[2018-04-15 10:15] LABS: ABSOLUTE EOSINOPHILS # (AUTO) 0.1 10^3/uL (0.0-0.6); ABSOLUTE LYMPHOCYTES (AUTO) 1.8 10^3/uL (0.5-4.7); ABSOLUTE MONOCYTES (AUTO) 0.4 10^3/uL (0.1-1.4); ABSOLUTE NEUT (AUTO) 1.9 10^3/uL (1.7-8.2); BASOPHILS % (AUTO) 0.4 % (0-2); EOSINOPHILS % (AUTO) 1.5 % (0-6); HEMATOCRIT 36.9 % (36.0-47.0); HEMOGLOBIN 11.9 g/dL (12.0-15.5); LYMPHOCYTES % (AUTO) 43.1 % (13-45); MEAN CORPUSCULAR HEMOGLOBIN 26.3 pg (27.0-33.4); MEAN CORPUSCULAR HGB CONC 32.3 g/dL (32.0-36.0); MEAN CORPUSCULAR VOLUME 82 fl (80-97); MONOCYTES % (AUTO) 10.2 % (3-13); PLATELET COUNT 286 10^3/uL (150-450); RED BLOOD COUNT 4.53 10^6/uL (3.72-5.28); SEGMENTED NEUTROPHILS % (AUTO) 44.8 % (42-78); TOTAL CELLS COUNTED % (AUTO) 100 %; WHITE BLOOD COUNT 4.2 10^3/uL (4.0-10.5)
[2018-04-15 10:23] LABS: ALANINE AMINOTRANSFERASE 27 U/L (9-52); ALBUMIN 4.3 g/dL (3.5-5.0); ALKALINE PHOSPHATASE 79 U/L (38-126); ANION GAP 12 (5-19); ASPARTATE AMINO TRANSFERASE 26 U/L (14-36); BILIRUBIN,DIRECT 0.3 mg/dL (0.0-0.4); BILIRUBIN,TOTAL 0.6 mg/dL (0.2-1.3); BLOOD UREA NITROGEN 13 mg/dL (7-20); CALCIUM 9.9 mg/dL (8.4-10.2); CARBON DIOXIDE 29 mmol/L (22-30); CHLORIDE 106 mmol/L (98-107); GLUCOSE 101 mg/dL (75-110); POTASSIUM 4.1 mmol/L (3.6-5.0); SODIUM 146.7 mmol/L (137-145); TOTAL PROTEIN 8.2 g/dL (6.3-8.2)
--- NOTE | 2018-04-15 10:26 | EKG REPORT ---
SEVERITY:- OTHERWISE NORMAL ECG - SINUS ARRHYTHMIA, RATE 50-70 : Confirmed by: Silvana Lance 15-Apr-2018 10:25:37
[2018-04-15 10:38] LABS: FREE T4 (FREE THYROXINE) 1.04 ng/dL (0.78-2.19)
[2018-04-15 10:51] LABS: THYROID STIMULATING HORMONE 1.27 uIU/mL (0.47-4.68)
[2018-04-15 12:59] VITALS: BP 131/84
[2018-04-15 17:46] LABS: FREE T3 4.06 pg/mL (2.77-5.27)
== END 2018-04-15 13:04 | disposition home or self-care (01) ==
LOC: ER 08:49
DX: R42 Dizziness and giddiness (principal); I10 Essential (primary) hypertension; R51 Headache; R11.0 Nausea
CPT/HCPCS: 36415; 80053; 84439; 84443; 84481; 85025; 93005; 93010; 99284

== ENCOUNTER 2018-06-14 18:50 | Emergency (ER) | payer OTHER ==
[2018-06-14] MEDS ORDERED: DICYCLOMINE HCL 20 MG TABLET PO ONE (19:30)
[2018-06-14] MEDS ORDERED: KETOROLAC TROMETHAMINE 10 MG TABLET PO ONE (19:30)
--- NOTE | 2018-06-14 19:35 | ER Document Report ---
ED GI/ - General Chief Complaint: Lower Abdominal Pain Stated Complaint: ABDOMINAL CRAMPING Time Seen by Provider: 06/14/18 19:27 Notes: Chief complaint: abdominal pain: History of complain:( obtained from----patient) 42years female presents today with lower abdominal cramps on and off with brown liquid stool on and off. Did not have any hard stool for a long time. This is not associated with any nausea vomiting. No fever chills or other constitutional symptoms. Denies any dysuria frequency urgency. Onset: As above gradual, Duration: Last few days Severity: Mild to moderate Quality: Crampy Context: Possible constipation Exacerbating factor and relieving factors: REVIEW OF SYSTEMS: CONSTITUTIONAL : Denies fever, chills, or sweats. Denies recent illness. EENT: Denies eye, ear, throat, or mouth pain or symptoms. Denies nasal or sinus congestion or discharge. Denies throat, tongue, or mouth swelling or difficulty swallowing. CARDIOVASCULAR: Denies chest pain. Denies palpitations or racing or irregular heart beat. Denies ankle edema. RESPIRATORY: Denies cough, cold, or chest congestion. Denies shortness of breath, difficulty breathing, or wheezing. GASTROINTESTINAL: Denies distention. Denies nausea, vomiting, or diarrhea. Denies blood in vomitus, stools, or per rectum. Denies black, tarry stools. Denies constipation. GENITOURINARY: Denies difficulty urinating, painful urination, burning, frequency, blood in urine, or discharge. FEMALE GENITOURINARY: Denies vaginal bleeding, heavy or abnormal periods, irregular periods. Denies vaginal discharge or odor. MUSCULOSKELETAL: Denies back or neck pain or stiffness. Denies joint pain or swelling. SKIN: Denies rash, lesions or sores. HEMATOLOGIC : Denies easy bruising or bleeding. LYMPHATIC: Denies swollen, enlarged glands. NEUROLOGICAL: Denies confusion or altered mental status. Denies passing out or loss of consciousness. Denies dizziness or lightheadedness. Denies headache. Denies weakness or paralysis or loss of use of either side. Denies problems with gait or speech. Denies sensory loss, numbness, or tingling. Denies seizures. PSYCHIATRIC: Denies anxiety or stress. Denies depression, suicidal ideation, or homicidal ideation. ALL OTHER SYSTEMS REVIEWED AND NEGATIVE. PHYSICAL EXAMINATION: GENERAL: Well-appearing, well-nourished and in no acute distress. HEAD: Atraumatic, normocephalic. EYES: Pupils equal round and reactive to light, extraocular movements intact, conjunctiva are normal. ENT: Nares patent, oropharynx clear without exudates. Moist mucous membranes. NECK: Normal range of motion, supple without lymphadenopathy LUNGS: Breath sounds clear to auscultation bilaterally and equal. No wheezes rales or rhonchi. HEART: Regular rate and rhythm without murmurs ABDOMEN: Soft, nontender, nondistended abdomen. No guarding, no rebound. No masses appreciated. Female : deferred Musculoskeletal: Normal range of motion, no pitting or edema. No cyanosis. NEUROLOGICAL: Cranial nerves grossly intact. Normal speech, normal gait. Normal sensory, motor exams PSYCH: Normal mood, normal affect. SKIN: Warm, Dry, normal turgor, no rashes or lesions noted. Dictation was performed using [employer] voice recognition software TRAVEL OUTSIDE OF THE [place] IN LAST 30 DAYS: No - HPI Notes: 06/14/18 19:35 Dictated - Related Data Allergies/Adverse Reactions: No Known Allergies Allergy (Verified 06/14/18 18:51) Past Medical History - Social History Smoking Status: Never Smoker Frequency of alcohol use: Occasional Drug Abuse: None Family History: Reviewed & Not Pertinent Patient has suicidal ideation: No Patient has homicidal ideation: No - Past Medical History Cardiac Medical History: Reports: Hx Hypertension Renal/ Medical History: Denies: Hx Peritoneal Dialysis Past Surgical History: Reports: Hx Tubal Ligation - Immunizations Hx Diphtheria, Pertussis, Tetanus Vaccination: Yes Review of Systems - Review of Systems Notes: Dictated Physical Exam - Vital signs Vitals: Temp Pulse Resp BP Pulse Ox 98 F 63 18 141/95 H 99 06/14/18 19:00 06/14/18 19:00 06/14/18 19:00 06/14/18 19:00 06/14/18 19:00 - Notes Notes: Dictated Course - Vital Signs Vital signs: Temp Pulse Resp BP Pulse Ox 98 F 63 18 141/95 H 99 06/14/18 19:00 06/14/18 19:00 06/14/18 19:00 06/14/18 19:00 06/14/18 19:00 - Diagnostic Test Radiology reviewed: Image reviewed - KUB shows large amount of fecal material Discharge - Discharge Clinical Impression: Abdominal cramping, Constipation by delayed colonic transit Condition: Fair Instructions: Constipation ([facility]) Prescriptions: Dicyclomine HCl [Bentyl 20 mg Tablet] 20 mg PO QID #30 tablet Lactulose 20 gm PO BID #120 ml Referrals: KARRIE AL MD [Primary Care Provider] - Follow up as needed
--- NOTE | 2018-06-14 20:01 | RADIOLOGY REPORT (SQ) ---
EXAM DESCRIPTION: KUB/ABDOMEN (SINGLE VIEW) COMPLETED DATE/TIME: 06/14/2018 7:53 pm REASON FOR STUDY: Abdominal pain COMPARISON: None. NUMBER OF VIEWS: One view. TECHNIQUE: Supine radiographic image of the abdomen acquired. LIMITATIONS: None. FINDINGS: BOWEL GAS PATTERN: Normal bowel gas pattern. No dilated loops. CALCIFICATIONS: No suspicious calcifications. SOFT TISSUES: No gross mass or suggestion of organomegaly. HARDWARE: None in the abdomen. BONES: No acute fracture. No worrisome bone lesions. OTHER: No other significant finding. IMPRESSION: NO RADIOGRAPHIC EVIDENCE FOR ACUTE ABDOMINAL DISEASE. TECHNICAL DOCUMENTATION: JOB ID: [id number] [employer]- All Rights Reserved Reading location - IP/workstation name: [email or web address]
[2018-06-14 20:35] VITALS: BP 139/77
== END 2018-06-14 20:35 | disposition home or self-care (01) ==
LOC: ER 18:50
DX: K59.01 Slow transit constipation (principal); R10.30 Lower abdominal pain, unspecified; I10 Essential (primary) hypertension; Z98.51 Tubal ligation status
CPT/HCPCS: 99284; 74018; J3490 ×2

== ENCOUNTER 2018-06-29 08:42 | Emergency (ER) | payer OTHER ==
[2018-06-29 10:15] LABS: APPEARANCE,URINE SLIGHTLY-CLOUDY; BILIRUBIN,URINE NEGATIVE (NEGATIVE); COLOR,URINE YELLOW; GLUCOSE, URINE NEGATIVE (NEGATIVE); KETONES,URINE NEGATIVE (NEGATIVE); LEUKOCYTE ESTERASE,URINE NEGATIVE (NEGATIVE); NITRITE,URINE NEGATIVE (NEGATIVE); PROTEIN,URINE NEGATIVE (NEGATIVE); URINE SPECIFIC GRAVITY 1.021; UROBILINOGEN,URINE NEGATIVE mg/dL (<2.0)
[2018-06-29 11:06] LABS: BACTERIA (WET MOUNT) 3+ BACTERIA SEEN; EPITHELIALS (WET MOUNT) 3+ EPITHELIALS SEEN; T.VAGINALIS (WET MOUNT) NO TRICHOMONAS SEEN; WBCS (WET MOUNT) NO WBCS SEEN; YEAST (WET MOUNT) NO YEAST SEEN
[2018-06-29 12:33] LABS: CHLAM PCR NOT DETECTED (NOT DETECT); GON PCR NOT DETECTED (NOT DETECT)
--- NOTE | 2018-06-29 12:41 | ER Document Report ---
ED General - General Chief Complaint: Pelvic Pain Stated Complaint: ABDOMINAL CRAMPING Time Seen by Provider: 06/29/18 09:27 Mode of Arrival: Ambulatory Information source: Patient TRAVEL OUTSIDE OF THE [place] IN LAST 30 DAYS: No - HPI Patient complains to provider of: Crampy abdominal pain Onset: Other - 42-year-old female presents for evaluation of occasional intermittent crampy abdominal pain she notes that nothing seems to make it better or worse, it just happens on occasion, is not associated with any other symptoms. Denies any pelvic pain nausea vomiting diarrhea constipation dysuria she never had anything like this in the past states that sometimes it gets better with a Tylenol. - Related Data Allergies/Adverse Reactions: No Known Allergies Allergy (Verified 06/14/18 18:51) Past Medical History - General Information source: Patient - Social History Smoking Status: Unknown if Ever Smoked Family History: Reviewed & Not Pertinent Patient has suicidal ideation: No Patient has homicidal ideation: No - Past Medical History Cardiac Medical History: Reports: Hx Hypertension Renal/ Medical History: Denies: Hx Peritoneal Dialysis Past Surgical History: Reports: Hx Tubal Ligation - Immunizations Hx Diphtheria, Pertussis, Tetanus Vaccination: Yes Review of Systems - Review of Systems -: Yes All other systems reviewed and negative Physical Exam - Vital signs Vitals: Temp Pulse BP Pulse Ox 97.6 F 65 133/88 H 98 06/29/18 08:51 06/29/18 08:51 06/29/18 08:51 06/29/18 08:51 - General General appearance: Appears well, Alert - HEENT Head: Normocephalic, Atraumatic Eyes: Normal Pupils: PERRL - Respiratory Respiratory status: No respiratory distress Chest status: Nontender Breath sounds: Normal Chest palpation: Normal - Cardiovascular Rhythm: Regular Heart sounds: Normal auscultation Murmur: No - Abdominal Inspection: Normal Distension: No distension Bowel sounds: Normal Tenderness: Nontender Organomegaly: No organomegaly - Back Back: Normal, Nontender - Extremities General upper extremity: Normal inspection, Nontender, Normal color, Normal ROM , Normal temperature General lower extremity: Normal inspection, Nontender, Normal color, Normal ROM , Normal temperature, Normal weight bearing. No: Lion's sign - Neurological Neuro grossly intact: Yes Cognition: Normal Orientation: AAOx4 Malika Coma Scale Eye Opening: Spontaneous [place] Coma Scale Verbal: Oriented [place] Coma Scale Motor: Obeys Commands [place] Coma Scale Total: 15 Speech: Normal Motor strength normal: LUE, RUE, LLE, RLE Sensory: Normal - Psychological Associated symptoms: Normal affect Course - Re-evaluation Re-evalutation: 07/01/18 20:55 42-year-old female with very vague nonspecific crampy occasional abdominal pain. On examination her abdominal exam is entirely benign. When asked about potential sexual partner exposures she is not quite certain. We will obtain pelvic swabs urinalysis. Urinalysis is unremarkable, pelvic swabs do not demonstrate an obvious yeast infection she may have bacterial vaginosis that is a dubious diagnosis. Did discuss with the patient the importance of continued to monitor her symptoms and drink a lot of water. We will plan for discharge with return precautions and treatment for her bacterial vaginosis. - Vital Signs Vital signs: Temp Pulse Resp BP Pulse Ox 97.8 F 70 16 127/87 H 100 06/29/18 12:49 06/29/18 12:49 06/29/18 12:49 06/29/18 12:49 06/29/18 12:49 - Laboratory Laboratory results interpreted by me: 06/29/18 09:32 Urine Blood SMALL H Discharge - Discharge Clinical Impression: Bacterial vaginosis Condition: Good Disposition: HOME, SELF-CARE Instructions: Metrogel Cream ([facility]) Additional Instructions: He was seen today in the emergency department for your pelvic pain and abdominal cramping. You do not have any obviously identified sexually transmitted infections. Your urine is well-appearing. You do not have an obvious yeast infection. You may have bacterial vaginosis. You have been given an antibiotic to help with this. Continue to use fluids at home to try and treat your symptoms as well as Motrin and Tylenol. Return for worsening pain fevers or chills inability to eat or drink. Prescriptions: Metronidazole [Metrogel] 60 gm TP BID #1 gel..gm. Referrals: NEW CHARLES MD [Primary Care Provider] - Follow up as needed
[2018-06-29 12:52] VITALS: BP 127/87
== END 2018-06-29 13:02 | disposition home or self-care (01) ==
LOC: ER 08:42
DX: N76.0 Acute vaginitis (principal); B96.89 Other specified bacterial agents as the cause of diseases classified elsewhere; R10.9 Unspecified abdominal pain; I10 Essential (primary) hypertension; Z98.51 Tubal ligation status
CPT/HCPCS: 81001; 87210; 87491; 87591; 99284

== ENCOUNTER 2018-09-04 09:26 | Emergency (ER) | payer OTHER ==
[2018-09-04] MEDS ORDERED: CEFTRIAXONE INJ 250 MG VIAL IM ONE (10:33)
[2018-09-04] MEDS ORDERED: LIDOCAINE 1% INJ-PF (10 MG/ML) 30 ML SDV INJ ONE (10:33)
[2018-09-04] MEDS ORDERED: AZITHROMYCIN 250 MG TABLET PO ONE (10:33)
--- NOTE | 2018-09-04 10:33 | ER Document Report ---
HPI - HPI Time Seen by Provider: 09/04/18 10:07 Pain Level: 0 Notes: Patient is a 42-year-old female with no significant past medical history who presents to the emergency department complaining of vaginal itching over the last month. Patient states that she was seen a month ago and was given a vaginal cream with minimal result. Patient states that she did use it last night as well and has some leftover inside of her currently which may make swabs difficult. Patient states that she does have unprotected sex and would like testing for gonorrhea although she has not been otherwise symptomatic. Patient states that she usually gets tested every few months. She is eating and drinking without difficulty. She is urinating normally and having normal bowel movements. Denies drug allergies. Patient states that she does not have any other pain or concerns. Denies any headache, fever, neck pain, URI, sore throat, chest pain, palpitations, syncope, cough, shortness of breath, wheeze, dyspnea, abdominal pain, nausea/vomiting/diarrhea, urinary retention, dysuria, hematuria, back pain, or rash. - ROS Systems Reviewed and Negative: Yes All other systems reviewed and negative - CONSTITUTIONAL Constitutional: DENIES: Fever, Chills - URINARY Urinary: DENIES: Dysuria, Urgency, Frequency - REPRODUCTIVE Reproductive: DENIES: :, Abnormal bleeding / discharge - vaginal itching Past Medical History - Social History Smoking Status: Never Smoker Frequency of alcohol use: Occasional Drug Abuse: None Family History: Reviewed & Not Pertinent Patient has suicidal ideation: No Patient has homicidal ideation: No - Past Medical History Cardiac Medical History: Reports: Hx Hypertension Renal/ Medical History: Denies: Hx Peritoneal Dialysis Past Surgical History: Reports: Hx Tubal Ligation - Immunizations Hx Diphtheria, Pertussis, Tetanus Vaccination: Yes Vertical Provider Document - CONSTITUTIONAL Agree With Documented VS: Yes Notes: PHYSICAL EXAMINATION: GENERAL: Well-appearing, well-nourished and in no acute distress. LUNGS: Breath sounds clear to auscultation bilaterally and equal. No wheezes rales or rhonchi. HEART: Regular rate and rhythm without murmurs, rubs, gallops. ABDOMEN: Soft, nontender, nondistended abdomen. No guarding, no rebound. No masses appreciated. Normal bowel sounds present. No CVA tenderness bilaterally. : deferred. Pt wanted to self-swab. Musculoskeletal: FROM to passive/active. Strength 5+/5. Extremities: No cyanosis, clubbing, or edema b/l. Peripheral pulses 2+. Capillary refill less than 3 seconds. NEUROLOGICAL: Normal speech, normal gait. PSYCH: Normal mood, normal affect. SKIN: Warm, Dry, normal turgor, no rashes or lesions noted. - INFECTION CONTROL TRAVEL OUTSIDE OF THE [place] IN LAST 30 DAYS: No Course - Re-evaluation Re-evalutation: 09/04/18 10:32 Pt is asymptomatic aside from vaginal itching. She declined pelvic exam and preferred to self swab as she has done so previously. Pt would like pre-treatment for chlam/antonio, however. 09/04/18 11:59 Patient is an afebrile, well-hydrated, 42-year-old female who presents to the ED with BV. Vitals are acceptable without any significant tachycardia, tachypnea, or hypoxia. PE is otherwise unremarkable. HCG negative. See wet mount results. Chlam/gonorrhea tests are pending. Pt received zithromax and rocephin. Patient is nontoxic-appearing is tolerating p.o. without any difficulties. No other labs or imaging warranted at this time based on H&P. Low suspicion/risk for acute appendicitis, bowel obstruction, acute cholecystitis, acute cholangitis, perforated diverticulitis, incarcerated hernia, pancreatitis, perforated ulcer, peritonitis, sepsis, pelvic inflammatory disease, ectopic , tubo-ovarian abscess, ovarian torsion, or other sys temic emergent condition at this time. Patient is aware that her condition can change from initial presentation and she needs to monitor symptoms closely and seek medical attention if any acute changes. I will send her home with prescription for Flagyl. Conservative measures otherwise for symptoms. Recheck with your PCM/OBGYN in 3-5 days. Return to the ED with any worsening/concerning symptoms otherwise as reviewed in discharge. Patient is in agreement. - Vital Signs Vital signs: Temp Pulse Resp BP Pulse Ox 98.1 F 70 16 131/81 H 98 09/04/18 09:49 09/04/18 09:49 09/04/18 09:49 09/04/18 09:49 09/04/18 09:49 Discharge - Discharge Clinical Impression: BV (bacterial vaginosis) Condition: Stable Disposition: HOME, SELF-CARE Instructions: Metronidazole ([facility]), Vaginosis, Bacterial ([facility]) Additional Instructions: Maintain fluid intake Proper hygienic technique Keep the skin clean Safe sexual practices with condoms everytime Tylenol/ibuprofen as needed Check in with the health department this week for further testing if warranted Your chlamydia/Ghon test are pending and you will be notified if positive results; you may call in 1 day for the results as well F/u with your PCM/OBGYN in 3-5 days for a recheck Return to the ED with any development of SHANNON/fever, trouble with vision, eye redness, worsening pain, urethral discharge, urinary retention, blood in the urine, flank pain, abdominal pain, n/v, Chest Pain, shortness of breath, joint pains, trouble breathing, or any other worsening/concerning symptoms as needed otherwise. Prescriptions: Metronidazole [Flagyl] 500 mg PO BID #14 tablet Forms: Elevated Blood Pressure Referrals: NEW CHARLES MD [Primary Care Provider] - Follow up as needed [facility] [Provider Group] - Follow up as needed
[2018-09-04 10:52] LABS: BACTERIA (WET MOUNT) 4+ BACTERIA SEEN; EPITHELIALS (WET MOUNT) 3+ EPITHELIALS SEEN; T.VAGINALIS (WET MOUNT) NO TRICHOMONAS SEEN; WBCS (WET MOUNT) RARE WBCS SEEN; YEAST (WET MOUNT) NO YEAST SEEN
[2018-09-04 12:18] LABS: CHLAM PCR NOT DETECTED (NOT DETECT); GON PCR NOT DETECTED (NOT DETECT)
[2018-09-04 12:53] VITALS: BP 125/80
== END 2018-09-04 12:52 | disposition home or self-care (01) ==
LOC: ER 09:26
DX: N76.0 Acute vaginitis (principal); B96.89 Other specified bacterial agents as the cause of diseases classified elsewhere; Z20.2 Contact with and (suspected) exposure to infections with a predominantly sexual mode of transmission; I10 Essential (primary) hypertension
CPT/HCPCS: 99283; 96372; 87210; 81025; 87491; 87591; J3490; J0696

== ENCOUNTER 2018-10-20 14:22 | Emergency (ER) | payer OTHER ==
--- NOTE | 2018-10-20 16:38 | ER Document Report ---
ED Respiratory Problem - General Chief Complaint: Cold Symptoms Stated Complaint: SINUS CONGESTION,COUGH,NAUSEA Time Seen by Provider: 10/20/18 16:24 Primary Care Provider: NEW CHARLES MD [Primary Care Provider] - Follow up in 3-5 days Mode of Arrival: Ambulatory Information source: Patient Notes: 42-year-old female presents to ED for complaint of cough cold congestion runny nose with body aches burning with no redness or drainage from the eyes. Patient is alert oriented respirations regular and unlabored speaking in full sentences walks with a even steady gait. She states she took [id number] Robitussin last night and DayQuil this morning. She states she has not had any relief from her symptoms. Patient states she has not taken her temperature that was had any fever. TRAVEL OUTSIDE OF THE [place] IN LAST 30 DAYS: No - HPI Patient complains to provider of: Cough Onset: Other - 2 days Initiating Event: URI Quality of pain: Achy Severity: Severe Pain Level: 5 - Related Data Allergies/Adverse Reactions: No Known Allergies Allergy (Verified 09/04/18 09:29) Past Medical History - General Information source: Patient - Social History Smoking Status: Former Smoker Frequency of alcohol use: Rare Drug Abuse: None Occupation: [employer] Lives with: Family Family History: Reviewed & Not Pertinent Patient has suicidal ideation: No Patient has homicidal ideation: No - Past Medical History Cardiac Medical History: Reports: Hx Hypertension Pulmonary Medical History: Reports: Hx Bronchitis EENT Medical History: Reports: None Neurological Medical History: Reports: None Endocrine Medical History: Reports: None Renal/ Medical History: Reports: None Malignancy Medical History: Reports: None GI Medical History: Reports: None Musculoskeletal Medical History: Reports None Skin Medical History: Reports None Psychiatric Medical History: Reports: None Traumatic Medical History: Reports: None Infectious Medical History: Reports: None Past Surgical History: Reports: Hx Tubal Ligation - Immunizations Immunizations up to date: Yes Hx Diphtheria, Pertussis, Tetanus Vaccination: Yes Review of Systems - Review of Systems Constitutional: Recent illness EENT: Nose congestion, Nose discharge, Sinus pressure, Sinus discharge, Throat pain Cardiovascular: No symptoms reported Respiratory: Cough Gastrointestinal: No symptoms reported Genitourinary: No symptoms reported Female Genitourinary: No symptoms reported Musculoskeletal: No symptoms reported Skin: No symptoms reported Hematologic/Lymphatic: No symptoms reported Neurological/Psychological: No symptoms reported -: Yes All other systems reviewed and negative Physical Exam - Vital signs Vitals: Temp Pulse Resp BP Pulse Ox 97.9 F 95 20 132/84 H 97 10/20/18 14:34 10/20/18 14:34 10/20/18 14:34 10/20/18 14:34 10/20/18 14:34 Interpretation: Normal - General General appearance: Appears well, Alert - HEENT Head: Normocephalic, Atraumatic Eyes: Normal Pupils: PERRL Ears: Normal External canal: Normal Tympanic membrane: Normal Sinus: Normal Nasal: Purulent discharge, Swelling Mouth/Lips: Normal Mucous membranes: Normal Pharynx: Post nasal drainage. No: Erythema, Exudate, Tonsillar hypertrophy - Respiratory Respiratory status: No respiratory distress Chest status: Nontender Breath sounds: Normal Chest palpation: Normal - Cardiovascular Rhythm: Regular Heart sounds: Normal auscultation Murmur: No - Abdominal Inspection: Normal Distension: No distension Bowel sounds: Normal Tenderness: Nontender Organomegaly: No organomegaly - Back Back: Normal, Nontender - Extremities General upper extremity: Normal inspection, Nontender, Normal color, Normal ROM, Normal temperature General lower extremity: Normal inspection, Nontender, Normal color, Normal ROM, Normal temperature, Normal weight bearing. No: Lion's sign - Neurological Neuro grossly intact: Yes Cognition: Normal Orientation: AAOx4 Malika Coma Scale Eye Opening: Spontaneous [place] Coma Scale Verbal: Oriented [place] Coma Scale Motor: Obeys Commands Elfr[place] Coma Scale Total: 15 Speech: Normal Motor strength normal: LUE, RUE, LLE, RLE Sensory: Normal - Psychological Associated symptoms: Normal affect, Normal mood - Skin Skin Temperature: Warm Skin Moisture: Dry Skin Color: Normal Course - Vital Signs Vital signs: Temp Pulse Resp BP Pulse Ox 98.6 F 88 16 138/92 H 98 10/20/18 16:36 10/20/18 16:36 10/20/18 16:36 10/20/18 16:36 10/20/18 16:36 Discharge - Discharge Clinical Impression: URI (upper respiratory infection) Qualifiers: URI type: unspecified URI Qualified Code(s): J06.9 - Acute upper respiratory infection, unspecified Condition: Stable Disposition: HOME, SELF-CARE Additional Instructions: UPPER RESPIRATORY ILLNESS: You have a viral infection of the respiratory passages -- a "cold." This common infection causes nasal congestion, drainage, and often sore throat and cough. It is highly contagious. The disease usually lasts about 10 to 14 days. There is no "cure" for the viral infection -- it must run its course. If there is a complication, such as bacterial infection in the nose, sinuses, middle ear, or bronchial tubes, antibiotics may be required. The antibiotics won't affect the virus. Drink plenty of fluids. A humidifier may help. An expectorant medication or decongestant may make you more comfortable. Use acetaminophen or ibuprofen for fever or aches. See the doctor if fever persists over two days, if there is any significant worsening of your symptoms, or if you simply fail to improve as expected. Assessment is consistent with an upper respiratory infection with cough cold congestion runny nose postnasal drip and sore throat. With your blood pressure you cannot take regular jttd-osy-exgppiy cold medications as these will elevate your blood pressure. You can use Coricidin HB which is sjis-tzg-lxnuuzl. This is a cold medicine that you can use with high blood pressure. You can also use Flonase nasal spray this is [id number] and use it according to the box instruction he can also use salt and soda solution gargles which will help to decrease the secretions from the back your throat. Chloraseptic spray may help your sore throat as well. USE OF ACETAMINOPHEN (Tylenol): Acetaminophen may be taken for pain relief or fever control. It's much safer than aspirin, offering a wider range of "safe" dosages. It is safe during . Some brand names are Tylenol, Panadol, Datril, Anacin 3, Tempra, and Liquiprin. Acetaminophen can be repeated every four hours. The following are maximum recommended dosages: >89 pounds or adults 650 mg to 900 mg Acetaminophen can be repeated every four hours. Maximum dose not to exceed 4000 mg a day. Salt and soda solution 1 quart of water 1 tablespoon of salt 1 teaspoon of baking soda Mixed 3 ingredients together and boil for 1 minute Placed in a covered quart jar Use 1/2 ounce of cold solution to gargle 3 times a day FOLLOW-UP CARE: If you have been referred to a physician for follow-up care, call the physicians office for an appointment as you were instructed or within the next two days. If you experience worsening or a significant change in your symptoms, notify the physician immediately or return to the Emergency Department at any time for re-evaluation. Forms: Elevated Blood Pressure, Return to Work Referrals: NEW CHARLES MD [Primary Care Provider] - Follow up in 3-5 days
[2018-10-20] MEDS ORDERED: ACETAMINOPHEN 325 MG TABLET PO ONE (16:39)
[2018-10-20 17:04] VITALS: BP 138/92
== END 2018-10-20 17:00 | disposition home or self-care (01) ==
LOC: ER 14:22
DX: J06.9 Acute upper respiratory infection, unspecified (principal); R09.81 Nasal congestion; R09.89 Other specified symptoms and signs involving the circulatory and respiratory systems; R05 Cough; I10 Essential (primary) hypertension; J34.89 Other specified disorders of nose and nasal sinuses; R09.82 Postnasal drip; Z87.891 Personal history of nicotine dependence
CPT/HCPCS: 99283

== ENCOUNTER 2018-11-20 14:32 | Emergency (ER) | payer OTHER ==
--- NOTE | 2018-11-20 15:31 | ER Document Report ---
ED General - General Chief Complaint: Vaginal Itching Stated Complaint: VAGINAL ITCHING,LOW ABDOMINAL PAIN Time Seen by Provider: 11/20/18 15:18 Primary Care Provider: [facility] [Provider Group] - Follow up in 3-5 days NEW CHARLES MD [Primary Care Provider] - Follow up as needed Notes: Patient is a 42-year-old female that presents to the emergency department for chief complaint of vaginal itching and pressure. Patient reports she is had similar symptoms in the past, and frequently gets bacterial vaginosis. She states the itching is been going on for about a week and a half now. Last time she had the symptoms was several months ago. She previously was on Flagyl which seems to help with the symptoms. She has had some discharge but not too bad according to the patient. Denies any fevers, chills, night sweats, dysuria, hematuria, urinary frequency, nausea, vomiting or abdominal pain. Past Medical History: Hypertension Past Surgical History: Tubal ligation Social History: Admits to occasional alcohol use, denies tobacco or drug use. Family History: Reviewed and noncontributory for presenting illness Allergies: Reviewed, see documented allergy list. REVIEW OF SYSTEMS: Other than noted above, the 12 point review of systems was reviewed with the patient and were negative, all pertinent findings are included in the HPI. PHYSICAL EXAMINATION: Vital signs reviewed, nursing noted reviewed. GENERAL: Well-appearing, well-nourished and in no acute distress. HEAD: Atraumatic, normocephalic. EYES: Eyes appear normal, sclera anicteric, conjunctiva are normal. ENT: Moist mucous membranes. NECK: Normal range of motion, supple without lymphadenopathy LUNGS: Breath sounds clear to auscultation bilaterally and equal. No wheezes rales or rhonchi. HEART: Regular rate and rhythm without murmurs EXTREMITIES: Nontender, good range of motion, no pitting or edema. NEUROLOGICAL: No focal neurological deficits. Moves all extremities spontaneously Motor and sensory grossly intact on exam. PSYCH: Normal mood, normal affect. SKIN: Warm, Dry, normal turgor, no rashes or lesions noted on exposed skin TRAVEL OUTSIDE OF THE [place] IN LAST 30 DAYS: No - Related Data Allergies/Adverse Reactions: No Known Allergies Allergy (Verified 11/20/18 15:20) Past Medical History - Social History Smoking Status: Never Smoker Chew tobacco use (# tins/day): No Frequency of alcohol use: Occasional Drug Abuse: None Family History: Reviewed & Not Pertinent Patient has suicidal ideation: No Patient has homicidal ideation: No - Past Medical History Cardiac Medical History: Reports: Hx Hypertension Pulmonary Medical History: Reports: Hx Bronchitis Renal/ Medical History: Denies: Hx Peritoneal Dialysis Past Surgical History: Reports: Hx Tubal Ligation - Immunizations Immunizations up to date: Yes Hx Diphtheria, Pertussis, Tetanus Vaccination: Yes Physical Exam - Vital signs Vitals: Temp Pulse Resp BP Pulse Ox 98.2 F 79 18 146/73 H 99 11/20/18 14:40 11/20/18 14:40 11/20/18 14:40 11/20/18 14:40 11/20/18 14:40 Course - Re-evaluation Re-evalutation: Patient seen and examined, vital signs reviewed, patient appears well on exam, I did offer her to be moved to a different part of the department for pelvic exam, and sent for studies, patient declined at this time, stating she rather just be treated, as she has had these symptoms before and is very familiar with them. Patient will be prescribed Flagyl twice daily for 7 days, and Diflucan if needed to take 1 time after finishing the course of Flagyl. Patient was agreeable to this plan of care and discharged home. Results were discussed with the patient at this point, after careful consideration I feel that that patient can be discharged from the emergency department, the patient was educated treatments and reasons to return to the emergency department based on their presumed diagnosis as noted above, they were advised to followup with a primary care physician in 2-3 days. Patient was a greeable to plan of care. *Note is created using voice recognition software and may contain spelling, syntax or grammatical errors. - Vital Signs Vital signs: Temp Pulse Resp BP Pulse Ox 98.0 F 71 18 137/80 H 100 11/20/18 15:29 11/20/18 15:29 11/20/18 15:29 11/20/18 15:29 11/20/18 15:29 Discharge - Discharge Clinical Impression: Bacterial vaginosis Condition: Stable Disposition: HOME, SELF-CARE Instructions: Vaginosis, Bacterial ([facility]) Prescriptions: Fluconazole [Diflucan] 150 mg PO ONCE PRN #1 tablet PRN Reason: yeast infection Metronidazole [Flagyl 500 mg Tablet] 500 mg PO BID #14 tablet Referrals: NEW CHARLES MD [Primary Care Provider] - Follow up as needed [facility] [Provider Group] - Follow up in 3-5 days
[2018-11-20 15:37] VITALS: BP 137/80
== END 2018-11-20 15:29 | disposition home or self-care (01) ==
LOC: ER 14:32
DX: N76.0 Acute vaginitis (principal); B96.89 Other specified bacterial agents as the cause of diseases classified elsewhere; I10 Essential (primary) hypertension
CPT/HCPCS: 99283

== ENCOUNTER 2019-02-17 08:07 | Emergency (ER) | payer OTHER ==
[2019-02-17 08:25] VITALS: BP 153/86
[2019-02-17] MEDS ORDERED: ONDANSETRON 4 MG TAB.RAPDIS PO ONE (10:12)
--- NOTE | 2019-02-17 10:12 | ER Document Report ---
HPI - HPI Time Seen by Provider: 02/17/19 10:04 Pain Level: 3 Notes: Patient is a 43-year-old female who presents complaining of feeling nauseated and a little weakness in her knees bilaterally after being stung by a couple bees yesterday. Pt states she was stung on the forehead and rt forearm. Patient states that she did use cortisone cream and has not noticed any other swelling or redness. She has been able to eat and drink without any difficulty. She is urinating normally and having normal bowel movements. Denies drug allergies. Patient states that she is able to ambulate and walk around without any difficulty or falls. She has no other concerns or complaints. Pt has no pain anywhere. Denies any headache, fever, neck pain, changes in vision/speech/mentation/hearing, URI, sore throat, drooling, hoarseness, chest pain, palpitations, syncope, cough, shortness of breath, wheeze, dyspnea, abdominal pain, nausea/vomiting/diarrhea, urinary retention, dysuria, hematuria, loss of control of bowel or bladder, numbness/tingling, muscle paralysis, or ra sh. - ROS Systems Reviewed and Negative: Yes All other systems reviewed and negative - REPRODUCTIVE Reproductive: DENIES: : - DERM Skin Color: Normal Past Medical History - Social History Smoking Status: Unknown if Ever Smoked Frequency of alcohol use: None Drug Abuse: None Family History: Reviewed & Not Pertinent Patient has suicidal ideation: No Patient has homicidal ideation: No - Past Medical History Cardiac Medical History: Reports: Hx Hypertension Pulmonary Medical History: Reports: Hx Bronchitis Renal/ Medical History: Denies: Hx Peritoneal Dialysis Past Surgical History: Reports: Hx Tubal Ligation - Immunizations Immunizations up to date: Yes Hx Diphtheria, Pertussis, Tetanus Vaccination: Yes Vertical Provider Document - CONSTITUTIONAL Agree With Documented VS: Yes Notes: PHYSICAL EXAMINATION: GENERAL: Well-appearing, well-nourished and in no acute distress. A&Ox4. Answers questions appropriately. HEAD: Atraumatic, normocephalic. Non-tender. EYES: Pupils equal round and reactive to light, extraocular movements intact, sclera anicteric, conjunctiva are normal. No nystagmus. ENT: Nares patent and without discharge. oropharynx clear without exudates. No tonsilar hypertrophy or erythema. Moist mucous membranes. No angioedema of the lips/tongue/throat. NECK: Normal range of motion, supple without lymphadenopathy. No rigidity/meningismus. No midline tenderness. LUNGS: Breath sounds clear to auscultation bilaterally and equal. No wheezes rales or rhonchi. HEART: Regular rate and rhythm without murmurs, rubs, gallops. ABDOMEN: Soft, nontender, nondistended abdomen. No guarding, no rebound. Normal bowel sounds present. No CVA tenderness bilaterally. Musculoskeletal: Ext's b/l: FROM to passive/active. Strength 5+/5. No deficits noted. No bony tenderness of extremities. Extremities: No cyanosis, clubbing, or edema b/l. Peripheral pulses 2+. Capillary refill less than 2 seconds. NEUROLOGICAL: GCS 15. Cranial nerves grossly intact. Normal speech, normal gait. Normal sensory, motor exams. PSYCH: Normal mood, normal affect. SKIN: Warm, Dry, normal turgor, no rashes or lesions noted. No areas of erythema, induration noted. No skin tenderness. - INFECTION CONTROL TRAVEL OUTSIDE OF THE [place] IN LAST 30 DAYS: No Course - Re-evaluation Re-evalutation: 02/17/19 10:15 Patient is an afebrile, well-hydrated, 43-year-old female who presents with nausea and recent bee sting without any obvious allergic reaction noted. Vitals are acceptable without significant tachycardia, tachypnea, hypoxia, hypotension. PE is otherwise unremarkable for any deficits or evidence of infection. Patient is nontoxic-appearing is able to tolerate p.o. without difficulty. No work-up warranted at this time. Patient was given Zofran p.o. Low suspicion for any angioedema, cellulitis, abscess, sepsis, meningitis, severe dehydration, respiratory compromise, septic joint, or other systemic emergent condition at this time. Patient is aware that condition can change from initial presentation and she needs to monitor symptoms closely and seek medical attention with any acute changes. I will send her home with a prescription for Zofran. Recheck with your PCM this week. Return to the ED with any other worsening/concerning symptoms. Patient is in agreement. - Vital Signs Vital signs: Temp Pulse Resp BP Pulse Ox 97.9 F 72 20 153/86 H 98 02/17/19 08:24 02/17/19 08:24 02/17/19 08:24 02/17/19 08:24 02/17/19 08:24 Discharge - Discharge Clinical Impression: Nausea Insect sting Qualifiers: Encounter type: initial encounter Injury intent: accidental or unintentional Qualified Code(s): T63.481A - Toxic effect of venom of other arthropod, accidental (unintentional), initial encounter Condition: Stable Disposition: HOME, SELF-CARE Additional Instructions: Keep the skin clean Wash with soap and water Tylenol/ibuprofen if needed Take medication as directed Monitor for any worsening symptoms Recheck with your PCM in 2-3 days Return to the ED with any worsening symptoms and/or development of fever, headache, chest pain, palpitations, syncope, shortness of breath, trouble breathing, abdominal pain, n/v/d, abscess, purulent discharge, red streaks, worsening swelling, or other worsening symptoms that are concerning to you. Prescriptions: Ondansetron [Zofran Odt 4 mg Tablet] 1 - 2 tab PO Q4H PRN #15 tab.rapdis PRN Reason: For Nausea/Vomiting Forms: Elevated Blood Pressure Referrals: NEW CHARLES MD [Primary Care Provider] - Follow up as needed
== END 2019-02-17 10:17 | disposition home or self-care (01) ==
LOC: ER 08:07
DX: T63.441A Toxic effect of venom of bees, accidental (unintentional), initial encounter (principal); R11.0 Nausea; R53.1 Weakness; I10 Essential (primary) hypertension
CPT/HCPCS: 99281; S0119

== ENCOUNTER 2019-04-30 16:02 | Emergency (ER) | payer SELFPAY ==
--- NOTE | 2019-04-30 16:19 | ER Document Report ---
ED Medical Screen (RME) - General Chief Complaint: Abdominal Pain Stated Complaint: ABDOMINAL PAIN Time Seen by Provider: 04/30/19 16:17 Primary Care Provider: NEW CHARLES MD [Primary Care Provider] - Follow up as needed Mode of Arrival: Ambulatory Information source: Patient Notes: 43-year-old female presented to ED for complaint of bilateral lower abdominal pain with vaginal itching. She has a history of high blood pressure anemia and a bilateral tubal ligation. She states she does not smoke she drinks monthly does not do drugs. 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 Vital signs are blood pressure 139/88 temperature 98.4 O2 sat 100% pulse 94 respirations 20 she is 92.1 kg and she is 5 foot 6 inches tall. I did do the vital signs myself and gave them to the nurse to put into the computer. Patient is alert oriented respirations regular and unlabored speaking in full sentences walks with even steady gait. I have greeted and performed a rapid initial assessment of this patient. A comprehensive ED assessment and evaluation of the patient, analysis of test results and completion of medical decision making process will be conducted by an additional ED providers. TRAVEL OUTSIDE OF THE [place] IN LAST 30 DAYS: No - Related Data Allergies/Adverse Reactions: No Known Allergies Allergy (Verified 04/30/19 16:04) Past Medical History - Social History Family history: None - Past Medical History Cardiac Medical History: Reports: Hx Hypertension Pulmonary Medical History: Reports: Hx Bronchitis Renal/ Medical History: Denies: Hx Peritoneal Dialysis Past Surgical History: Reports: Hx Tubal Ligation - Immunizations Immunizations up to date: Yes Hx Diphtheria, Pertussis, Tetanus Vaccination: Yes Doctor's Discharge - Discharge Referrals: NEW CHARLES MD [Primary Care Provider] - Follow up as needed
[2019-04-30 16:21] VITALS: BP 139/88
[2019-04-30 16:39] LABS: ABSOLUTE EOSINOPHILS # (AUTO) 0.1 10^3/uL (0.0-0.6); ABSOLUTE LYMPHOCYTES (AUTO) 2.3 10^3/uL (0.5-4.7); ABSOLUTE MONOCYTES (AUTO) 0.4 10^3/uL (0.1-1.4); ABSOLUTE NEUT (AUTO) 2.5 10^3/uL (1.7-8.2); BASOPHILS % (AUTO) 0.5 % (0-2); EOSINOPHILS % (AUTO) 1.2 % (0-6); HEMATOCRIT 36.6 % (36.0-47.0); HEMOGLOBIN 11.9 g/dL (12.0-15.5); LYMPHOCYTES % (AUTO) 43.7 % (13-45); MEAN CORPUSCULAR HEMOGLOBIN 26.7 pg (27.0-33.4); MEAN CORPUSCULAR HGB CONC 32.6 g/dL (32.0-36.0); MEAN CORPUSCULAR VOLUME 82 fl (80-97); PLATELET COUNT 276 10^3/uL (150-450); RED BLOOD COUNT 4.47 10^6/uL (3.72-5.28); RED CELL DISTRIBUTION WIDTH 14.8 % (11.5-14.0); SEGMENTED NEUTROPHILS % (AUTO) 47.6 % (42-78); TOTAL CELLS COUNTED % (AUTO) 100 %; WHITE BLOOD COUNT 5.2 10^3/uL (4.0-10.5)
[2019-04-30 16:52] LABS: APPEARANCE,URINE SLIGHTLY-CLOUDY; BILIRUBIN,URINE NEGATIVE (NEGATIVE); COLOR,URINE YELLOW; GLUCOSE, URINE NEGATIVE (NEGATIVE); KETONES,URINE NEGATIVE (NEGATIVE); LEUKOCYTE ESTERASE,URINE TRACE (NEGATIVE); NITRITE,URINE NEGATIVE (NEGATIVE); PROTEIN,URINE NEGATIVE (NEGATIVE); UROBILINOGEN,URINE NEGATIVE mg/dL (<2.0)
[2019-04-30 16:56] LABS: ALBUMIN 4.5 g/dL (3.5-5.0); ALKALINE PHOSPHATASE 78 U/L (38-126); ANION GAP 10 (5-19); ASPARTATE AMINO TRANSFERASE 27 U/L (14-36); BILIRUBIN,DIRECT 0.2 mg/dL (0.0-0.4); BILIRUBIN,TOTAL 0.6 mg/dL (0.2-1.3); BLOOD UREA NITROGEN 15 mg/dL (7-20); CALCIUM 10.2 mg/dL (8.4-10.2); CARBON DIOXIDE 28 mmol/L (22-30); CHLORIDE 104 mmol/L (98-107); POTASSIUM 3.5 mmol/L (3.6-5.0)
[2019-04-30 16:58] LABS: GLUCOSE 59 mg/dL (75-110)
[2019-04-30] MEDS ORDERED: DEXTROSE 5%-1/2 NORMAL SALINE 500 ML IV ONE (17:00)
[2019-04-30 18:26] LABS: BACTERIA (WET MOUNT) 4+ BACTERIA SEEN; EPITHELIALS (WET MOUNT) 3+ EPITHELIALS SEEN; T.VAGINALIS (WET MOUNT) NO TRICHOMONAS SEEN; WBCS (WET MOUNT) 1+ WBCS SEEN; YEAST (WET MOUNT) YEAST SEEN
--- NOTE | 2019-04-30 20:49 | ER Document Report ---
ED GI/ - General Chief Complaint: Abdominal Pain Stated Complaint: ABDOMINAL PAIN Time Seen by Provider: 04/30/19 16:17 Primary Care Provider: NEW CHARLES MD [Primary Care Provider] - Follow up as needed Mode of Arrival: Ambulatory TRAVEL OUTSIDE OF THE [place] IN LAST 30 DAYS: No - HPI Patient complains to provider of: Abdominal pain, Vaginal discharge. No: , Vaginal bleeding Onset: Just prior to arrival Timing/Duration: Gradual Quality of pain: Dull Severity at maximum: Mild Severity in ED: Mild Pain Level: 1 Location: Low back. No: Chest pain, Left flank, Right flank Vaginal bleeding (Compared to normal period): None Menstrual period history: Irregular - on mirena Sexual history: Active Associated symptoms: None Exacerbated by: Movement Relieved by: Denies - Related Data Allergies/Adverse Reactions: No Known Allergies Allergy (Verified 04/30/19 16:04) Past Medical History - General Information source: Patient - Social History Smoking Status: Never Smoker Chew tobacco use (# tins/day): No Frequency of alcohol use: None Drug Abuse: None Family History: Reviewed & Not Pertinent Patient has suicidal ideation: No Patient has homicidal ideation: No - Past Medical History Cardiac Medical History: Reports: Hx Hypertension Pulmonary Medical History: Reports: Hx Bronchitis Renal/ Medical History: Denies: Hx Peritoneal Dialysis Past Surgical History: Reports: Hx Tubal Ligation - Immunizations Immunizations up to date: Yes Hx Diphtheria, Pertussis, Tetanus Vaccination: Yes Review of Systems - Review of Systems Constitutional: No symptoms reported EENT: No symptoms reported, Eye pain Cardiovascular: No symptoms reported Respiratory: No symptoms reported Gastrointestinal: Abdominal pain. denies: Vomiting Genitourinary: denies: Dysuria, Discharge, Frequency, Urgency Female Genitourinary: Vaginal discharge Musculoskeletal: No symptoms reported, Back pain Neurological/Psychological: No symptoms reported Physical Exam - Vital signs Vitals: Temp Pulse Resp BP Pulse Ox 98.4 F 94 20 139/88 H 100 04/30/19 16:05 04/30/19 16:05 04/30/19 16:05 04/30/19 16:05 04/30/19 16:05 Notes: Physical examVital signs see nursing notes HEENT PERRLA Oropharynx clear Neck supple no meningismus Chest clear to auscultation bilaterally CVS regular rate and rhythm without rubs murmurs or gallops Abdomen soft nontender bowel sounds all quadrants pelvic: with chaparone. clear d/c mild cervicitis. no adnexal tenderness mild cmt. Extremities clear muscle strength 5 out of 5 bilaterally Neurological moves all extremities Alert and oriented x3 musculoskeletal strength 5 out of 5 bilateral lower extremities Course - Vital Signs Vital signs: Temp Pulse Resp BP Pulse Ox 98.4 F 94 20 139/88 H 100 04/30/19 16:05 04/30/19 16:05 04/30/19 16:05 04/30/19 16:05 04/30/19 16:05 - Laboratory Result Diagrams: 04/30/19 16:20 04/30/19 16:20 Laboratory results interpreted by me: 04/30/19 04/30/19 04/30/19 16:20 16:20 16:20 Hgb 11.9 L MCH 26.7 L RDW 14.8 H Potassium 3.5 L Glucose 59 L Ur Leukocyte Esterase TRACE H - Transfer of Care Notes: 04/30/19 21:22 Is improved Discharge - Discharge Clinical Impression: Cervicitis Disposition: HOME, SELF-CARE Instructions: Abdominal Pain ([facility]), Cervicitis ([facility]) Additional Instructions: Cultures and if they are positive have your sexual partner seen and treated for sexually transmitted disease Referrals: NEW CHARLES MD [Primary Care Provider] - Follow up as needed
[2019-04-30] MEDS ORDERED: CEFTRIAXONE INJ 250 MG VIAL IM ONE (21:21)
[2019-04-30] MEDS ORDERED: AZITHROMYCIN 1 GM SUSP PACKET PO ONE (21:21)
[2019-04-30 22:22] LABS: CHLAM PCR NOT DETECTED (NOT DETECT)
== END 2019-04-30 21:40 | disposition home or self-care (01) ==
LOC: ER 16:02
DX: N72 Inflammatory disease of cervix uteri (principal); N89.8 Other specified noninflammatory disorders of vagina; R10.9 Unspecified abdominal pain; M54.5 Low back pain; I10 Essential (primary) hypertension; Z98.51 Tubal ligation status; Z97.5 Presence of (intrauterine) contraceptive device
CPT/HCPCS: 99284; 96372; 36415; 87210; 82962; 83690; 85025; 80053; 81001; 87491; 87591; Q0144; J0696